=== PATIENT | male | born 1945 | race Caucasian/White ===

== ENCOUNTER → 2016-05-10 | Outpatient (CLI) | payer MEDICARE ==
[~2016-05-10] MED LIST: /AMIO20TA PO; /HYDR10TAB PO; /PANT40TA PO; ACET65TA; AMLO2.5T PO; APAP325T PO; ATOR1TAB21 PO; AVOD0.5C; CALC0.25 PO; CALC1CAP31 PO; CARV12.5 PO; CARV6.25 PO; COLA50CA3 PO; COUM1TAB17 PO; COZA50TA PO; LEVA250T; LEVO75TA4 PO; LOPR50TA; LOSA100T36 PO; NEPHROVITE; NORCOTAB PO; NORV5TAB; PANT40TA2 PO; PERC5TAB8; PHOSLO667 MG; RENATAB5 PO; RENATAB6 PO; SENO8.6T10 PO; SYNT100T PO; SYNT88TA2 PO; [UNRECOGNIZED DRUG - OTHER] PO
--- NOTE | 2016-05-11 10:18 | RADONC ---
RADIATION ONCOLOGY FOLLOWUP NOTE DATE: 05/11/2016 DIAGNOSIS: Prostate cancer. STAGE: II, [id number]. ECOG PERFORMANCE STATUS: 0 FOLLOWUP NOTE: Mr. 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 The patient presents today reporting that he is doing quite well with no complaints at this time related to his radiation therapy disease. He has no bowel difficulties and no bone pain. REVIEW OF SYSTEMS: The patient's review of systems is noncontributory except for his continued need for dialysis. He denies nausea, vomiting, fevers, chills, night sweats, diplopia, headaches, anxiety or depression, anorexia, weight loss, visual disturbances, chest pain, bowel difficulties, bone pain or neurological problems. PHYSICAL EXAMINATION The patient is a well-developed, well-nourished male in no acute distress. HEENT exam is normocephalic, atraumatic. Extraocular movements are intact. There is no palpable cervical, supraclavicular, infraclavicular, axillary, or inguinal lymphadenopathy present. Lungs are clear to auscultation and percussion. Heart has a regular rate and rhythm. Abdomen is benign with no hepatosplenomegaly, masses, or tenderness. Rectal examination reveals a normal anal sphincter tone. His prostate is smooth with no evidence of nodularity. Skeletal examination reveals no tenderness to pressure or percussion of the bony skeleton. Extremities reveal no clubbing, cyanosis, or edema. Neurologic exam is grossly intact as is the remainder of the physical examination. ASSESSMENT: The patient is clinically doing very well at this point. His PSA however has gone up very slightly to 2.1 on 05/03/2016 as compared to 1.9 on 10/26/2015. It has been slowly going up over the past few years. I discussed this patient's concerns in detail and provided him a copy of the NCCN guidelines for biochemical failure in a patient status post radiation. At this time, biochemical failure according to the NCCN guidelines is a rise by 2 points. His overall PSA has only risen by 1.5 points over the last 7 years. In light of this, we will continue to follow him closely. I have scheduled a followup in 4 months and will repeat the PSA at that time. The patient is having no quality of life issues at the present time. I explained the various procedures and workup that would be required to pursue local treatment following radiation and their risks. At this time he does not even think he would want to take such risks. Indeed, in light of his exceedingly high PSA at diagnosis of 97.29, the likelihood is that the tumor was outside the prostate area to begin with. I suspect it may have been in the lymph node, which was in the irradiated field. Cryosurgery or brachytherapy would not help such a situation. Once again, in summary, I have scheduled the patient to see me again in four months time. We will repeat the PSA level at that time. I have given him various educational sites were he can review his options should the PSA accelerate or continue to rise. At this time, I believe watchful waiting would be best in this patient with no symptoms. cc: Davi Segovia MD *Kaity Pearson,
== END ==
LOC: M ONCR 15:20
PROVIDERS: ATTEND Radiology Radiation Oncology
DX: C61 Malignant neoplasm of prostate (principal)

== ENCOUNTER → 2016-09-15 | Outpatient (CLI) | payer MEDICARE ==
[~2016-09-15] MED LIST changes: +ACETAMINOPHEN 325 MG TAB As Ordered ONE; +LIDOCAINE 1% MDV 20ML VIAL As Ordered ONE
--- NOTE | 2016-09-15 14:33 | REP ---
POST BIOPSY CHEST: A single view of the chest is performed status post right lung biopsy. There is no pneumothorax. Opacity is again seen in the right lung base. The heart is not significantly enlarged. There are multiple sternal wires. IMPRESSION: No pneumothorax, status post right lung biopsy. Signed by Adonis Raza MD 09/15/2016 03:58 P
--- NOTE | 2016-09-15 16:58 | REP ---
CT GUIDED RIGHT MIDDLE LOBE LUNG BIOPSY: The procedure was performed under the direct supervision of Dr. Raza. The patient has a history of a 1.8 cm mass in the right middle lobe seen on a previous CAT scan from [facility] performed on 08/23/2016. The risks and benefits of the procedure were explained to the patient and informed consent was obtained. The right middle lobe lung mass was localized using CT guidance. The skin was prepped and draped in a sterile fashion. 1% Lidocaine was used as a local anesthetic. Using CT guidance a 19/20-gauge coaxial needle biopsy system was inserted and then advanced into the mass. 4 core biopsy samples were obtained and sent to the lab. The patient tolerated the procedure well and there were no immediate complications. After the appropriate amount of monitored convalescence the patient was discharged from the department. Reviewed by MELISA Savage 09/18/2016 03:15 PEdited and Signed by Adonis Raza MD 09/18/2016 04:51 P
== END | disposition home or self-care (01) ==
LOC: M RADPRO 10:15
PROVIDERS: ATTEND Surgery
DX: C34.2 Malignant neoplasm of middle lobe, bronchus or lung (principal); C61 Malignant neoplasm of prostate; N18.6 End stage renal disease; I51.9 Heart disease, unspecified; Z95.5 Presence of coronary angioplasty implant and graft; Z99.2 Dependence on renal dialysis; Z79.01 Long term (current) use of anticoagulants; Z79.899 Other long term (current) drug therapy; Z87.891 Personal history of nicotine dependence

== ENCOUNTER → 2016-09-27 | Outpatient (CLI) | payer MEDICARE ==
[~2016-09-27] MED LIST changes: -ACETAMINOPHEN 325 MG TAB As Ordered ONE; -LIDOCAINE 1% MDV 20ML VIAL As Ordered ONE
--- NOTE | 2016-09-28 10:09 | RADONC ---
RADIATION ONCOLOGY FOLLOWUP NOTE DATE: 09/27/2016 CHART NUMBER: [id number] DIAGNOSIS: Prostate cancer. STAGE: II, W2iW7E0, now metastatic. ECOG performance status one. FOLLOWUP NOTE: Mr. Florez is a very pleasant 71-year-old white male who was originally diagnosed with a high-risk Stage 2, K4pG8V6 moderate to poorly differentiated Ashu score 7 (3-4) adenocarcinoma of the prostate and is now presenting to us 8 years post completion of external beam radiation therapy. The patient recently was being worked up for hernia surgery and was found to have a solitary mid right middle lobe lung nodule on his CT scan. On 09/15/2016, this was biopsied and pathology revealed metastatic prostate adenocarcinoma. His PSA done 09/22/2016 had risen to 3.62 from 2.1 on 05/03/2016. At this time, no other sites of disease are seen, but his workup is only beginning in progress. The patient has no symptoms and generally continues to feel well. He continues with his urinary dialysis. REVIEW OF SYSTEMS: The patient's review of systems is positive for his need for dialysis, but is otherwise noncontributory. Denies nausea, vomiting, fevers, chills, night sweats, diplopia, headaches, anxiety or depression, anorexia, weight loss, visual disturbances, chest pain, urinary or bowel difficulties, bone pain, or neurological problems. PHYSICAL EXAMINATION: The patient is a well-developed, well-nourished male in no acute distress. HEENT exam is normocephalic, atraumatic. Extraocular movements are intact. There is no palpable cervical, supraclavicular, infraclavicular, axillary, or inguinal lymphadenopathy present. Lungs are clear to auscultation and percussion. Heart has a regular rate and rhythm. Abdomen is benign with no hepatosplenomegaly, masses, or tenderness. Rectal examination reveals a normal anal sphincter tone. His prostate is smooth with no evidence of nodularity. Skeletal examination reveals no tenderness to pressure or percussion of the bony skeleton. Extremities reveal no clubbing, cyanosis, or edema. Neurologic exam is grossly intact, as is the remainder of the physical examination. ASSESSMENT: At the present time, the patient is now 8 years post prostate treatment with a pathologically confirmed metastatic site in his right middle lobe. I have scheduled the patient for discussion at our multidisciplinary tumor conference next Sunday. In addition, I am ordering further workup including a bone scan as well as possibly a PET scan. I await the recommendations of our tumor board and further recommendations will be made once we obtain his overall level of disease. At this point, I would think if this is the only site of disease after all these years it may be quite reasonable to resect this site and then initiate hormonal treatment. He would then need close monitoring. If further workup shows widely metastatic disease, clearly the recommendations may change. Once again, I have scheduled the patient for discussion at our multidisciplinary tumor conference and he will undergo reevaluation and consultation the following day. We are also scheduling a bone scan and a PET scan at this point. cc: DO Vince Clements MD Alejandro Rodriguez, MD MTDD
== END ==
LOC: M ONCR 14:35
PROVIDERS: ATTEND Radiology Radiation Oncology
DX: C61 Malignant neoplasm of prostate (principal)

== ENCOUNTER → 2016-10-03 | Outpatient (CLI) | payer MEDICARE ==
--- NOTE | 2016-10-05 08:31 | REP ---
Whole body PET CT scan: The study is correlated with the recent chest CT dated 08/23/2016 from [facility]. The the patient has a right middle lobe of lung mass. This mass was biopsied under CT guidance on 09/15/2016. The pathology report indicates that the biopsy specimen demonstrated findings of metastatic adenocarcinoma consistent with prostate primary. The comparison CT also demonstrated a 7 mm nodule in the lower lobe of the right lung. Whole body PET CT scan is performed from skull base to the upper thighs. Neck and supraclavicular areas: There are no hypermetabolic foci. Chest: The right middle lobe lung mass demonstrates hypermetabolic uptake with a standard uptake value 4.91, compatible with neoplasm. The right lower lobe lung nodule demonstrates no radiotracer uptake and has a standard uptake value 0.7. There are no other hypermetabolic foci in the chest. Abdomen, pelvis and upper thighs: There is focal uptake at the lateral aspect of the left rectus abdominus muscle with the standard uptake value of 4.7. This is at the skin entrance site of a peritoneal catheter. . Therefore, the significance of this uptake is nonspecific and could be secondary to catheter placement or could represent metastasis. There is nonspecific bowel uptake. There are no other hypermetabolic foci in the abdomen, pelvis or upper thighs. No skeletal foci are identified. Impression: The patient's known right middle lung nodule demonstrates hypermetabolic uptake. The patient's known right lower lobe lung nodule demonstrates no radiotracer uptake. There is focal hypermetabolic uptake at the lateral aspect of the left rectus abdominus muscle in the location of the percutaneous peritoneal catheter skin entrance site. Therefore, this is nonspecific and could be secondary catheter placement or could be a metastasis. There are no other hypermetabolic foci. Signed by Adonis Denton MD 10/05/2016 08:22 A
== END ==
LOC: M PLARAD 11:26
PROVIDERS: ATTEND Radiology Radiation Oncology
DX: C61 Malignant neoplasm of prostate (principal); C78.01 Secondary malignant neoplasm of right lung
CPT/HCPCS: 78815; A9552

== ENCOUNTER → 2016-10-05 | Outpatient (CLI) | payer MEDICARE ==
--- NOTE | 2016-10-05 13:42 | REP ---
REASON: History of prostate carcinoma. COMPARISON: 05/12/2008. After the intravenous administration of 22.0 mCi of technetium 99m MDP, total body bone scan was obtained. Degenerative type uptake pattern is again seen in the shoulders, elbows, wrists, hips, and knees. Degenerative type uptake pattern is also seen in the cervical spine. IMPRESSION: Degenerative type uptake patterns as described above. There is no compelling evidence of metastatic disease. Signed by Raz Robb DO 10/05/2016 02:18 P
== END ==
LOC: M RAD 10:48
PROVIDERS: ATTEND Radiology Radiation Oncology
DX: C61 Malignant neoplasm of prostate (principal)
CPT/HCPCS: 78306; A9503

== ENCOUNTER → 2016-10-05 | Outpatient (CLI) | payer MEDICARE ==
--- NOTE | 2016-10-06 06:37 | RADONC ---
RADIATION ONCOLOGY PROGRESS NOTE DATE: 10/05/2016 CHART NUMBER: [id number] Mr. Florez underwent his PET scan as well as is bone scan. I do not have the official reading of the bone scan, but his PET scan showed some hypermetabolic uptake in his right middle lobe mass. The patient was presented at our multidisciplinary tumor conference. At that conference it was recommended that he be initially treated with androgen deprivation therapy. In the meantime, his symptomatic hernia can also be surgically corrected. Indeed, his prostate tumor will be treated with androgen deprivation therapy while he is recovering from his hernia surgery. Since the only known site of metastatic disease appears to be that lung nodule, it was also has deemed reasonable to have that resected with Dr. Guo following recovery from the hernia surgery. Monitoring of his smaller non hypermetabolic nodule was also recommended to continue in the meantime. I have set the patient up to see me again in 6 months for further followup. In the meantime, the patient is scheduled see Dr. Colby next week for initiation of his hormonal treatment. cc: MD Vince Mckeon MD
== END ==
LOC: M ONCR 13:21
PROVIDERS: ATTEND Radiology Radiation Oncology
DX: C61 Malignant neoplasm of prostate (principal)

== ENCOUNTER → 2016-10-10 | Outpatient (REF) | payer MEDICARE | LOC: M LAB REF 16:52 | PROVIDERS: ATTEND Internal Medicine Medical Oncology | DX: C61 Malignant neoplasm of prostate (principal) ==

== ENCOUNTER 2016-11-03 06:01 | Day surgery (SDC) | payer MEDICARE ==
[~2016-11-03] VITALS: Ht 167.6 cm; Wt 120.5 kg
[~2016-11-03 06:01] MED LIST changes: +ARTH650T11 PO; +COUM2TAB22 PO; +LOSA50TA20 PO; +MUPI1POW TOP
[2016-11-03] MEDS ORDERED: LIDOCAINE 1% SDV 5 ML VIAL XX ONE (06:15)
[2016-11-03] MEDS ORDERED: LR 1,000 ML IV SCH (06:15)
[2016-11-03 06:41] LABS: INR 1.02
[2016-11-03] MEDS ORDERED: BUPIVACAINE/EPIN 0.25% 30 ML VIAL As Ordered ONE (07:19)
[2016-11-03] MEDS ORDERED: NEOSTIGMINE 1MG/ML 5 ML SYRINGE (J2710) As Ordered ONE (08:02)
[2016-11-03] MEDS ORDERED: GLYCOPYRROLATE INJ 0.2 MG/ML 2 ML VIAL As Ordered ONE (08:02)
[2016-11-03] MEDS ORDERED: MIDAZOLAM INJ 2 MG/2 ML VIAL (J2250) As Ordered ONE (08:02)
[2016-11-03] MEDS ORDERED: dexameTHASONE 4 MG/ML 1ML VIAL (J1100) As Ordered ONE (08:02)
[2016-11-03] MEDS ORDERED: fentaNYL 100 MCG/2 ML INJECTION (J3010) As Ordered ONE ×2 (08:02→10:17)
[2016-11-03] MEDS ORDERED: ONDANSETRON 4MG/2ML VIAL (J2405) As Ordered ONE (08:02)
[2016-11-03] MEDS ORDERED: ROCURONIUM BROMIDE 50 MG/5 ML VIAL/SYRINGE As Ordered ONE (08:02)
[2016-11-03] MEDS ORDERED: PROPOFOL 500 MG/50 ML VIAL As Ordered ONE (08:02)
[2016-11-03] MEDS ORDERED: LIDOCAINE 2% INJ 100 MG/5 ML SDV (FOR ANES.) As Ordered ONE (08:11)
[2016-11-03] MEDS ORDERED: ePHEDrine SULFATE 25 MG/5 ML(5MG/ML) SYRINGE As Ordered ONE (08:11)
[2016-11-03] MEDS ORDERED: PHENYLephrine HCL 500 MCG/5 ML (100MCG/ML) SYRINGE (J2370) As Ordered ONE (08:11)
[2016-11-03] MEDS ORDERED: HYDROmorphone HCL 2 MG/ML 1ML VIAL (J1170) As Ordered ONE (09:08)
[2016-11-03] MEDS ORDERED: METOCLOPRAMIDE INJ 10MG/2ML VIAL (J2765) As Ordered ONE (09:13)
[2016-11-03] MEDS: fentaNYL 100 MCG/2 ML INJECTION (J3010) IV PRN ×6 (10:20→18:55)
[2016-11-03] MEDS ORDERED: ONDANSETRON 4MG/2ML VIAL (J2405) IV PRN ×2 (10:30→15:15)
[2016-11-03] MEDS ORDERED: CARVedilol 12.5 MG TAB PO ONE (10:30)
[2016-11-03] MEDS ORDERED: NORCO, ANEXSIA 5/325MG TABLET (HYDROcodone/ACETAMINOPHEN) PO PRN (10:30)
[2016-11-03] MEDS ORDERED: NS 1,000 ML IV SCH (10:30)
[2016-11-03] MEDS ORDERED: CARVedilol 6.25 MG TAB As Ordered ONE (10:43)
[2016-11-03] MEDS ORDERED: LABETALOL HCL 100 MG/20 ML VIAL As Ordered ONE (10:57)
[2016-11-03] MEDS: LABETALOL HCL 100 MG/20 ML VIAL IV SCH ×5 (11:04→11:40)
[2016-11-03] MEDS ORDERED: ACETAMINOPHEN TAB 650MG DOSE (2X325MG) PO PRN (15:15)
[2016-11-03] MEDS ORDERED: MORPHINE 2 MG/ML 1ML SYRINGE IV PRN (15:15)
[2016-11-03] MEDS ORDERED: KETOROLAC 30 MG/ML VIAL (J1885) IV PRN (16:00)
[2016-11-03] MEDS ORDERED: NORCO, ANEXSIA 5/325MG TABLET (HYDROcodone/ACETAMINOPHEN) PO ONE (16:15)
[2016-11-03] MEDS ORDERED: hydrALAZINE INJ 20 MG/ML VIAL As Ordered ONE (17:22)
[2016-11-03] MEDS: hydrALAZINE INJ 20 MG/ML VIAL IV PRN ×3 (17:35→18:15)
[2016-11-03] MEDS ORDERED: LABETALOL HCL 100 MG/20 ML VIAL IV PRN (18:45)
[2016-11-03 20:15] VITALS: BP 188/102
[2016-11-03 20:45] VITALS: BP 130/71
[2016-11-03] MEDS ORDERED: ATORVASTATIN 20 MG TAB PO SCH (21:00)
[2016-11-03] MEDS: SENOKOT S TAB PO SCH (21:00)
[2016-11-03] MEDS: HEPARIN SOD (PORCINE) 5000 UNITS/ML VIAL SC SCH (21:39)
[2016-11-03] MEDS: CARVedilol 12.5 MG TAB PO SCH (21:40)
[2016-11-03 21:45] VITALS: BP 156/72
--- NOTE | 2016-11-03 22:30 | ECGEPIP ---
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 Electronically Signed On 11-03-2016 22:30:30 EDT by James Logan
[2016-11-03 22:45] VITALS: BP 148/70
[2016-11-04 02:00] VITALS: BP 176/84
[2016-11-04 03:30] VITALS: BP 148/78
[2016-11-04 06:00] VITALS: BP 148/72
[2016-11-04] MEDS ORDERED: LEVOTHYROXINE 75MCG TABLET (0.075MG) PO SCH (06:00)
[2016-11-04] MEDS: HEPARIN SOD (PORCINE) 5000 UNITS/ML VIAL SC SCH (06:33)
[2016-11-04] MEDS ORDERED: MIDAZOLAM INJ 2 MG/2 ML VIAL (J2250) As Ordered ONE (07:35)
[2016-11-04] MEDS ORDERED: fentaNYL 100 MCG/2 ML INJECTION (J3010) As Ordered ONE (07:35)
[2016-11-04] MEDS ORDERED: PROPOFOL 200 MG/20 ML VIAL As Ordered ONE (07:37)
[2016-11-04] MEDS ORDERED: LIDOCAINE 2% INJ 100 MG/5 ML SDV (FOR ANES.) As Ordered ONE (07:37)
[2016-11-04] MEDS: CARVedilol 12.5 MG TAB PO SCH (08:00)
[2016-11-04] MEDS ORDERED: BUPIVACAINE HCL 0.5% 30 ML VIAL As Ordered ONE (08:40)
[2016-11-04] MEDS ORDERED: LIDOCAINE 1% SDV INJ 30 ML VIAL As Ordered ONE (08:40)
[2016-11-04 09:00] VITALS: BP 131/64
[2016-11-04] MEDS ORDERED: PANTOPRAZOLE 40MG INJ (PROTONIX) (C9113) IV SCH (09:00)
[2016-11-04] MEDS ORDERED: LOSARTAN 50 MG TAB PO SCH (09:00)
[2016-11-04] MEDS: SENOKOT S TAB PO SCH (09:00)
[2016-11-04] MEDS ORDERED: HEPARIN SOD (PORCINE) 5000 UNITS/ML VIAL As Ordered ONE (09:06)
--- NOTE | 2016-11-04 09:39 | ROOPDOC ---
[facility] Report Of Operation Report of Operation DATE OF PROCEDURE: 11/04/16 PREOPERATIVE DIAGNOSES:Renal failure requiring hemodialysis. POSTOPERATIVE DIAGNOSES: Renal failure requiring hemodialysis. PROCEDURE: Right internal jugular vein ultrasound and fluoroscopic guided 19 cm tip to cuff central venous tunneled catheter insertion. SURGEON: Dr. Gil Anaya MD WOOL CARDER: None INDICATION:Patient is a 71-year-old male who has renal failure who normally dialyzes through a peritoneal dialysis catheter. Patient underwent repair of an incisional hernia laparoscopically, and is unable to use his renal dialysis catheter at this time.. Patient will undergo placement of a right internal jugular vein PermCath. Risks, benefits and alternative treatment options were discussed with the patient. Alternative treatment options included no intervention with continued conservative management. Risks included but were not limited to infection, bleeding, renal failure requiring hemodialysis, possible need for further open surgical intervention, cerebrovascular accident, myocardial infarction, pulmonary and was, DVT, loss of limb, loss of life, prolonged hospitalization and poor outcome. Patient's questions were answered, and patient agrees to proceed with a right internal jugular vein PermCath insertion ANESTHESIA: Local monitored anesthesia care. SEDATION TIME: None FLUORO TIME: 30 seconds CONTRAST: None IVF: 200 ESTIMATED BLOOD LOSS:Approximately 5 mL. HEPARIN: None PROTAMINE: None COMPLICATIONS: None DRAINS: None SPECIMENS: None IMPLANTS: 19 cm tip to cuff EvenMore PermCath in the right internal jugular vein FINDINGS: Normal anatomy DESCRIPTION OF PROCEDURE: Patient was taken to the operating room, placed supine on the operating room table, and after performing a surgical timeout confirming the correct patient and procedure, the patient was prepped and draped in a standard surgical fashion. Ultrasound is used to evaluate the right internal jugular vein which was noted to be widely patent easily compressible and free of thrombus. The also was used to guide cannulation of the right internal jugular vein with an micro-puncture needle. The micro-puncture was advanced through the micropuncture needle which subsides to micropuncture sheath. An Amplatz wire was advanced through the micropuncture sheath. A 19 cm tip to cuff catheter was tunneled through a puncture wound in the right chest area and brought out through a puncture wound at the right internal jugular vein entry site after anesthetizing the overlying skin with 1% lidocaine mixed with half percent Marcaine. The right internal jugular vein was then sequentially dilated under fluoroscopic guidance, an introducer sheath was placed, and then the catheter was advanced through the introducer sheath which was peeled away and removed. Catheter was positioned with the tip in the superior vena cava right atrial junction. Both ports were aspirated noted to aspirate easily and then flushed with heparinized saline. Catheter was secured to the anterior chest wall using 2-0 Prolene suture after anesthetizing the overlying skin with 1% lidocaine mixed with half percent Marcaine. The puncture wound in the right neck was closed using 4-0 Monocryl suture in inverted interrupted fashion. Dressings were applied, patient tolerated the procedure well. All instrument, sponge and needle counts were correct at the end of the case. There were no complications, and Dr. Anaya was present for and directed the entire case. Patient was transferred to the recovery room awake, alert, extubated and in stable condition. RADIOLOGIC SUPERVISION AND INTERPRETATION: The initial ultrasound of the right internal jugular vein showed leading to be widely patent easily compressible and free of thrombus. Ultrasound was used to guide cannulation of the right internal jugular vein with a hardcopy image preserved. The right internal jugular vein was sequentially dilated under fluoroscopic guidance. Catheter was positioned with the tip in the superior vena cava right atrial junction. Final fluoroscopic image showed the catheter to be in good position and good alignment with no pneumo or hemothorax noted. Catheter is stable for use for hemodialysis access. Rashad Anaya MD Nov 04, 2016 09:39
[2016-11-04] MEDS ORDERED: fentaNYL 100 MCG/2 ML INJECTION (J3010) IV PRN (09:45)
[2016-11-04 10:00] VITALS: BP 136/65
[2016-11-04 10:30] VITALS: BP 155/73
--- NOTE | 2016-11-04 11:28 | IPNPDOC ---
Subjective General Date/Time Seen The patient was seen on 11/04/16 at 11:26. Subject Chief Complaint/History The patient is a 71-year-old male admitted with a reason for visit of Incarcerated Incisional Hernia. A HD permacath was placed today by Dr. Simmons. Patient reports he is comfortable. Nausea better. Current Medications Current Medications Current Medications Acetaminophen (Tylenol Tab) 650 mg Q4HP PRN PO MILD PAIN or TEMP > 101; Start 11/03/16 at 15:15; Stop 12/03/16 at 15:14 Acetaminophen/ Hydrocodone Bitart ([place], Anexsia 5/325) 2 tab Q6HP PRN PO PAIN Last administered on 11/03/16 14:37; Start 11/03/16 at 10:30; Stop at 10:29 Atorvastatin Calcium (Lipitor) 20 mg QPM PO ; Start 11/03/16 at 21:00; Stop at 20:59 Carvedilol (COReg) 12.5 mg BID@08,20 PO Last administered on 11/03/16 21:40; Start 11/03/16 at 20:00; Stop 12/03/16 at 19:59 Fentanyl Citrate (Sublimaze) 25 mcg Q5MP PRN IV MODERATE PAIN (PS 4-7) Last administered on 11/03/16 10:30; Start 11/03/16 at 10:30; Stop 11/03/16 at 11:30 ; Status DC Fentanyl Citrate (Sublimaze) 25 mcg Q5MP PRN IV MODERATE PAIN (PS 4-7) Last administered on 11/03/16 18:55; Start 11/03/16 at 18:00; Stop 11/03/16 at 19:00 ; Status DC Fentanyl Citrate (Sublimaze) 25 mcg Q5MP PRN IV MODERATE PAIN (PS 4-7); Start 11/04/16 at 09:45; Stop 11/04/16 at 10:45; Status DC Heparin Sodium (Porcine) (Heparin) 5,000 units Q8H SC Last administered on 11/04 06:33; Start 11/03/16 at 22:00; Stop 11/08/16 at 21:59 Hydralazine HCl (Apresoline) 5 mg Q5M PRN IV TITRATE FOR SBP <190 Last administered on 11/03/16 18:15; Start 11/03/16 at 17:30; Stop 11/03/16 at 19:00 ; Status DC Ketorolac Tromethamine (ToRADol) 15 mg Q6HP PRN IV MILD/MODERATE PAIN (PS 1-7) Last administered on 11/04/16 03:15; Start 11/03/16 at 16:00; Stop 11/08/16 at 15:59 Labetalol HCl (Normodyne, Trandate) 5 mg ASDIRECTED IV Last administered on 11:40; Start 11/03/16 at 11:15; Stop 11/03/16 at 12:00; Status DC Labetalol HCl (Normodyne, Trandate) 5 mg Q5M PRN IV TITRATE SBP <190; Start at 18:45; Stop 11/03/16 at 19:00; Status DC Lactated Ringer's 1,000 ml @ 100 mls/hr Q10H IV ; Start 11/03/16 at 06:15; Stop 11/03/16 at 10:28; Status DC Levothyroxine Sodium (Synthroid) 75 mcg DAILY@06 PO Last administered on 06:33; Start 11/04/16 at 06:00; Stop 12/04/16 at 05:59 Losartan Potassium (Cozaar) 50 mg DAILY PO ; Start 11/04/16 at 09:00; Stop 12/04 at 08:59 Morphine Sulfate (Morphine Sulfate Inj) 2 mg Q2HP PRN IV SEVERE PAIN (PS 8-10) ; Start 11/03/16 at 15:15; Stop 11/10/16 at 15:14 Ondansetron HCl (ZOFRAN INJection) 4 mg Q4HP PRN IV NAUSEA OR VOMITING; Start 11/03/16 at 10:30; Stop 11/03/16 at 11:30; Status DC Ondansetron HCl (ZOFRAN INJection) 4 mg Q6HP PRN IV NAUSEA OR VOMITING Last administered on 11/04/16 03:13; Start 11/03/16 at 15:15; Stop 12/03/16 at 15:14 Pantoprazole Sodium (Protonix) 40 mg DAILY IV Last administered on 7/22/17at 10 :14; Start 11/04/16 at 09:00; Stop 12/04/16 at 08:59 Senna/Docusate Sodium (Senokot S) 1 tab BID PO ; Start 11/03/16 at 21:00; Stop 12/03/16 at 20:59 Sodium Chloride 1,000 ml @ 30 mls/hr Q24H IV ; Start 11/03/16 at 10:30; Stop at 11:30; Status DC Allergies Coded Allergies: No Known Drug Allergy (Verified Allergy, Unknown, 11/03/16) Objective Physical Examination Examination GENERAL APPEARANCE:Patient seen, laying in bed, awake, alert, and oriented. Comfortable, in no acute distress. SKIN: Warm and moist. HEENT: Normocephalic, atraumatic. [place] palpebral conjunctiva, anicteric sclerae. Lips and mucosa appear moist. NECK: Supple, no thyromegaly. No obvious jugular venous distention. LUNGS: Clear to auscultation bilaterally. No wheezing appreciated.New Permacath , right side of chest HEART: No chest wall abnormalities. Regular rate and rhythm with no murmurs appreciated. ABDOMEN: Abdomen is round, soft, mildly distended. Dressings clean, dry, intact. PD catheter site clean. Minimally tender to palpatiion. EXTREMITIES: Extremities have no deformities. No edema identified. Vital Signs Vital Signs Date Time Temp Pulse Resp B/P (MAP) Pulse Ox O2 Delivery O2 Flow Rate FiO2 11/04/16 10:30 98.8 65 18 155/73 (100) 97 Room Air 11/03/16 20:05 2.0 I&Os I&O- Last 24 Hours up to 6 AM 11/04/16 06:00 Intake Total 1420 ml Output Total 1050 ml Balance 370 ml Impression POD1 incisional hernia repair permacath placement Stable. OK to go home. Hemodialysis planned for sunday as outpt. follow up with Dr. Thakkar as scheduled light activity Plan / VTE VTE Prophylaxis Ordered?: Yes YUVAL GUEVARA MD Nov 04, 2016 11:28
--- NOTE | 2016-11-04 14:56 | REP ---
C-ARM VIEWS OF THE CHEST: Two C-arm views of the chest are performed. Central venous dialysis catheter is seen with the tip in the right atrium. 31 seconds fluoroscopy time utilized. Signed by Adonis Raza MD 11/04/2016 03:24 P
--- NOTE | 2016-11-05 06:38 | RO ---
DATE OF PROCEDURE: 11/03/2016 PREOPERATIVE DIAGNOSIS: Incarcerated incisional hernia. POSTOPERATIVE DIAGNOSIS: Incarcerated incisional hernia. PROCEDURE: Laparoscopic incarcerated incisional hernia repair with mesh. SURGEON: Dr. Adonis Thakkar INSTRUMENTATION AND CONTROLS TECHNICIAN: Dr. Goodman ANESTHESIA: General. ESTIMATED BLOOD LOSS: 10. COMPLICATIONS: None. INDICATION FOR PROCEDURE: The patient is a 71-year-old male with peritoneal dialysis who has a large incarcerated incisional hernia. Recommendation is to proceed with laparoscopic possible open repair. Risks and benefits of procedure not limited to, but including bleeding, infection, hernia recurrence, damage to surrounding structures, seroma formation, and need for further surgery were discussed in detail with the patient. Informed consent was obtained and the procedure was planned. PROCEDURE: The patient brought back to operating room six after sufficient sedation and the abdomen was sterilely prepped and draped. Next, a time-out was done to confirm proper patient and proper procedure. Following that, a 5 mm incision made in the left lower quadrant. The Veress needle was inserted and the abdomen was insufflated to 15 mm of mercury. Next, a 5 mm OptiView port was used to gain access to the abdomen. Once abdomen was entered, there was a very large midline hernia identified. The hernia contents were all reduced. A few adhesions were taken down using the Enseal. Due to the size of the defect and it was less than 2 cm away from the peritoneal dialysis catheter entrance into the abdomen, because of that the plan was to open and primarily close the defect from the outside. Next, a 10 mm midline incision was created over the top of the center of the defect. The hernia sac was carefully dissected free circumferentially all way down to the level of the fascia. It was then excised. The fascia edges were freed up in all directions. From the inside, we were able to place two interrupted #0 Vicryl sutures to close a small defect around the entrance of the peritoneal dialysis catheter into the abdomen. Once that was completed, a 10 x 15 cm Parietex composite mesh had #0 Vicryl sutures placed on all four sides. The mesh and sutures were then all placed inside of the abdomen. The defect was then closed with an #0 PDS suture, one from the top and one from the bottom and tied in the center. The abdomen was then reinsufflated. The transfascial sutures were brought out through the abdominal wall through a stab incision and using a Jacinto-Pham needle and then tied in place. The mesh was then tacked in place using SecureStrap tacks all around the perimeter of the mesh and then along both sides of the dialysis catheter to hold that in place. Once all this was completed, the abdomen was desufflated. The skin incisions were closed with #4-0 Vicryl subcuticular sutures. The skin overlying the midline hernia sac was carefully excised for about 2 inches circumferentially. The subcutaneous tissues were then reapproximated using #3-0 Vicryl subcuticular sutures and a running #4-0 Vicryl subcuticular suture to approximate the skin edges. The abdomen was then cleaned and dried. Steri-Strips, 4x4 and tape were applied thus ending procedure.
== END 2016-11-04 12:08 | disposition home or self-care (01) ==
LOC: M SDC 06:01 → M MS5PR 19:10 → M SDC 11-04 12:08
PROVIDERS: ATTEND Surgery
DX: K43.0 Incisional hernia with obstruction, without gangrene (principal); I25.10 Atherosclerotic heart disease of native coronary artery without angina pectoris; I12.0 Hypertensive chronic kidney disease with stage 5 chronic kidney disease or end stage renal disease; E78.5 Hyperlipidemia, unspecified; D64.9 Anemia, unspecified; M54.9 Dorsalgia, unspecified; C61 Malignant neoplasm of prostate; M12.9 Arthropathy, unspecified; E03.9 Hypothyroidism, unspecified; I48.91 Unspecified atrial fibrillation; I25.2 Old myocardial infarction; N18.6 End stage renal disease; K21.9 Gastro-esophageal reflux disease without esophagitis; E78.00 Pure hypercholesterolemia, unspecified; C44.91 Basal cell carcinoma of skin, unspecified; C78.00 Secondary malignant neoplasm of unspecified lung; Z79.899 Other long term (current) drug therapy; Z79.01 Long term (current) use of anticoagulants; Z87.891 Personal history of nicotine dependence; Z92.3 Personal history of irradiation; Z99.2 Dependence on renal dialysis; Z95.5 Presence of coronary angioplasty implant and graft
CPT/HCPCS: 36415; 49655; 84132; 85610; 88302; 93005; 96372; 96374; 96375; 96376; C1750; C1769; C1781; C9113; J0690; J1100; J1170; J1885; J2250; J2370; J2405; J2710; J2765; J3010

== ENCOUNTER → 2017-01-09 | Outpatient (CLI) | payer MEDICARE ==
[~2017-01-09] MED LIST changes: +ISOVUE-370 76% 100ML VIAL (Q9967) As Ordered ONE
--- NOTE | 2017-01-09 14:31 | REP ---
CT of the chest with IV contrast: Comparison is 08/23/2016 ([facility]). On the previous study there was a 128 cm right upper lobe lung nodule. On the study today the nodule is again identified and has a ground-glass appearance as opposed to the solid appears previously. The nodule today measures 1.6 cm. No other lung nodules or masses are identified. No acute infiltrates or effusions. There is no mediastinal or hilar adenopathy. The. There is no axillary adenopathy. There are no lytic, blastic or destructive skeletal changes. There are sternotomy wires as previously. The thoracic aorta is unremarkable. Cardiac size is normal. There is no pericardial effusion. With the visualized upper abdomen. There are tiny gallbladder calculi. These are unchanged. The upper poles of the kidneys appear somewhat atrophic, particularly on the right. The adrenals are unremarkable. Visualized portions of the liver, pancreas and spleen are unremarkable. Impression: The patient's known right upper lobe lung nodule has decreased in size and now has a ground-glass appearance. There are no other lung nodules or masses. No acute infiltrates or effusions. No adenopathy. There is no evidence of skeletal metastatic disease. There are sternotomy wires. There is cholelithiasis, unchanged. There is renal cortical atrophy of the visualized renal upper poles bilaterally, particularly on the right. This appears unchanged. Signed by Adonis Denton MD 01/09/2017 02:23 P
== END ==
LOC: M RAD 13:30
PROVIDERS: ATTEND Internal Medicine Medical Oncology
DX: C61 Malignant neoplasm of prostate (principal); C79.9 Secondary malignant neoplasm of unspecified site; K80.20 Calculus of gallbladder without cholecystitis without obstruction
CPT/HCPCS: 71260; Q9967

== ENCOUNTER → 2017-01-11 | Outpatient (CLI) | payer MEDICARE ==
[~2017-01-11] MED LIST changes: -ISOVUE-370 76% 100ML VIAL (Q9967) As Ordered ONE; +LIDOCAINE 2% MDV 20 ML VIAL As Ordered ONE
--- NOTE | 2017-01-24 14:42 | REPKIM ---
DATE OF PROCEDURE: 01/11/2017 ATTENDING SURGEON: Dr. Caroline Anaya FIRE PATROLLER: Baylee Qureshi PREOPERATIVE DIAGNOSES: End-stage renal disease, functioning peritoneal dialysis catheter. POSTOPERATIVE DIAGNOSES: End-stage renal disease, functioning peritoneal dialysis catheter. PROCEDURE: Removal of right internal jugular PermCath. INDICATION: Patient is a 71-year-old male with renal failure who now has a functioning peritoneal dialysis catheter and no longer requires his right internal jugular vein PermCath. Patient will undergo removal of the right internal jugular vein PermCath. Risks, benefits, and alternative treatment options were discussed with the patient. ANESTHESIA: None. ESTIMATED BLOOD LOSS: Minimal. INTRAVENOUS (IV) FLUID: None. COMPLICATIONS: None. DRAINS: None. SPECIMENS: None. IMPLANTS: None. PROCEDURE: Patient was taken to the angiography suite, placed supine on the angiography room table, and then prepped and draped in a standard surgical fashion. The PermCath sutures were removed, and manual traction was applied, which spontaneously released the subcutaneous cuff, and the PermCath was removed, and manual compression applied. Dressings were then applied. Patient tolerated the procedure well. All instruments, sponge, and needle counts were correct at the end of the case. There were no complications. Dr. Anaya was present for and directed the entire case. Patient was transferred to the holding area and subsequently discharged in stable condition.
== END | disposition home or self-care (01) ==
LOC: M IRPRO 10:20
PROVIDERS: ATTEND Internal Medicine Nephrology
DX: Z45.2 Encounter for adjustment and management of vascular access device (principal); N18.6 End stage renal disease

== ENCOUNTER → 2017-02-06 | Outpatient (CLI) | payer MEDICARE ==
[~2017-02-06] MED LIST changes: -LIDOCAINE 2% MDV 20 ML VIAL As Ordered ONE
--- NOTE | 2017-02-07 11:10 | REP ---
Whole body PET CT scan for prostate carcinoma: Comparison is 10/03/2016. Whole-body scanning is performed from skull base to the upper thighs. Neck and supraclavicular areas: There are no hypermetabolic foci. There is artifactual uptake in lymphoid tissues. Chest: There is focal uptake in the distal right infraspinatus muscle tendon, not present previously with a standard uptake value of 5.3. Previously there was uptake in a left lung nodule. This uptake is no longer present. There are no other hypermetabolic foci in the chest. Abdomen, pelvis and upper thighs: Previously there was uptake at the skin entrance site of a peritoneal catheter. This uptake is no longer present. There is new uptake at the musculotendinous junctions of the gluteus heriberto muscles bilaterally with a maximal standard uptake value on the right of 5.4 and on the left of 3.1. In addition, there is new focal uptake in the greater trochanter of the right hip with a maximal standard uptake value of 4.3. Impression: There is focal uptake in the right infraspinatus muscle tendon and in the musculotendinous junctions of the gluteus muscles bilaterally. There is uptake in the greater trochanter of the right hip. The previous uptake in a left lung nodule is no longer present on the previous uptake in the the abdominal wall related to a peritoneal catheter is no longer present. The studies performed with 10 mCi of F 18 FDG. Signed by Adonis Denton MD 02/07/2017 11:02 A
== END ==
LOC: M PLARAD 14:27
PROVIDERS: ATTEND Internal Medicine Medical Oncology
DX: C61 Malignant neoplasm of prostate (principal); R93.7 Abnormal findings on diagnostic imaging of other parts of musculoskeletal system
CPT/HCPCS: 78815; A9552

== ENCOUNTER → 2017-02-22 | Outpatient (REF) | payer MEDICARE | LOC: M LAB REF 16:55 | PROVIDERS: ATTEND Internal Medicine Medical Oncology | DX: C61 Malignant neoplasm of prostate (principal) ==

== ENCOUNTER → 2017-03-22 | Outpatient (REF) | payer MEDICARE ==
[2017-03-22 19:08] LABS: ALBUMIN 3.4 GM/DL (3.2-5.2); ALBUMIN/GLOBULIN RATIO 1.03 (1.00-1.93); BILIRUBIN,TOTAL 0.8 MG/DL (0.2-1.0); CALCIUM LEVEL 8.8 MG/DL (8.8-10.2); CREATININE FOR GFR 3.47 MG/DL (0.70-1.30); GLOMERULAR FILTRATION RATE 18.7 (>42); POTASSIUM SERUM 4.3 MEQ/L (3.5-5.1); TOTAL PROTEIN 6.7 GM/DL (6.4-8.2)
== END ==
LOC: M LAB REF 17:18
PROVIDERS: ATTEND Nurse Practitioner Family
DX: C61 Malignant neoplasm of prostate (principal)

== ENCOUNTER → 2017-05-30 | Outpatient (CLI) | payer MEDICARE | LOC: M ONCR 15:03 | DX: C61 Malignant neoplasm of prostate (principal) | CPT/HCPCS: G0463 ==

== ENCOUNTER → 2017-06-28 | Outpatient (REF) | payer MEDICARE ==
[2017-06-28 18:01] LABS: ALBUMIN 3.2 GM/DL (3.2-5.2); ALKALINE PHOSPHATASE 103 U/L (45-117); ALT/SGPT 24 U/L (12-78); ANION GAP 9 MEQ/L (8-16); AST/SGOT 27 U/L (7-37); BILIRUBIN,TOTAL 0.9 MG/DL (0.2-1.0); BLOOD UREA NITROGEN 26 MG/DL (7-18); CALCIUM LEVEL 8.7 MG/DL (8.8-10.2); CARBON DIOXIDE LEVEL 26 MEQ/L (21-32); CHLORIDE LEVEL 105 MEQ/L (98-107); CREATININE FOR GFR 3.73 MG/DL (0.70-1.30); GLOMERULAR FILTRATION RATE 17.2 (>42); GLUCOSE, FASTING 98 MG/DL (70-100); POTASSIUM SERUM 4.2 MEQ/L (3.5-5.1); PROSTATIC SPECIFIC AG MONITOR 0.02 NG/ML (< 4.0); SODIUM LEVEL 140 MEQ/L (136-145); TOTAL PROTEIN 6.4 GM/DL (6.4-8.2)
[2017-06-28 18:27] LABS: TESTOSTERONE 15 NG/DL (241-827)
== END ==
LOC: M LAB REF 16:54
DX: C61 Malignant neoplasm of prostate (principal); Z79.899 Other long term (current) drug therapy; Z79.01 Long term (current) use of anticoagulants
CPT/HCPCS: 84403

== ENCOUNTER → 2017-09-05 | Outpatient (CLI) | payer MEDICARE | LOC: M ONCR 14:19 | DX: C61 Malignant neoplasm of prostate (principal) | CPT/HCPCS: G0463 ==

== ENCOUNTER → 2017-09-24 | Outpatient (REF) | payer MEDICARE, BC ==
[2017-09-24 18:57] LABS: PROSTATIC SPECIFIC AG MONITOR 0.01 NG/ML (< 4.0)
== END ==
LOC: M LAB REF 18:28
DX: C61 Malignant neoplasm of prostate (principal)
CPT/HCPCS: 84153

== ENCOUNTER → 2017-12-31 | Outpatient (CLI) | payer MEDICARE ==
[~2017-12-31] MED LIST changes: -/AMIO20TA PO; -/HYDR10TAB PO; -/PANT40TA PO; -ACET65TA; -AMLO2.5T PO; -APAP325T PO; -ARTH650T11 PO; -ATOR1TAB21 PO; -AVOD0.5C; -CALC0.25 PO; -CALC1CAP31 PO; -CARV12.5 PO; -CARV6.25 PO; -COLA50CA3 PO; -COUM1TAB17 PO; -COUM2TAB22 PO; -COZA50TA PO; +ISOVUE-370 76% 100ML VIAL (Q9967) As Ordered; -LEVA250T; -LEVO75TA4 PO; -LOPR50TA; -LOSA100T36 PO; -LOSA50TA20 PO; -MUPI1POW TOP; -NEPHROVITE; -NORCOTAB PO; -NORV5TAB; -PANT40TA2 PO; -PERC5TAB8; -PHOSLO667 MG; -RENATAB5 PO; -RENATAB6 PO; -SENO8.6T10 PO; -SYNT100T PO; -SYNT88TA2 PO; -[UNRECOGNIZED DRUG - OTHER] PO
== END ==
LOC: M RAD 12:43
DX: C79.82 Secondary malignant neoplasm of genital organs (principal)
CPT/HCPCS: Q9967

== ENCOUNTER → 2017-12-31 | Outpatient (REF) | payer MEDICARE ==
[2017-12-31 19:10] LABS: ALBUMIN 3.2 GM/DL (3.2-5.2); ALKALINE PHOSPHATASE 89 U/L (45-117); ALT/SGPT 32 U/L (12-78); ANION GAP 11 MEQ/L (8-16); AST/SGOT 34 U/L (7-37); BILIRUBIN,TOTAL 1.2 MG/DL (0.2-1.0); BLOOD UREA NITROGEN 26 MG/DL (7-18); CARBON DIOXIDE LEVEL 24 MEQ/L (21-32); CHLORIDE LEVEL 103 MEQ/L (98-107); CREATININE FOR GFR 2.85 MG/DL (0.70-1.30); GLOMERULAR FILTRATION RATE 23.4 (>42); GLUCOSE, FASTING 116 MG/DL (70-100); POTASSIUM SERUM 4.3 MEQ/L (3.5-5.1); PROSTATIC SPECIFIC AG MONITOR < 0.01 NG/ML (< 4.0); SODIUM LEVEL 138 MEQ/L (136-145); TESTOSTERONE 13 NG/DL (241-827); TOTAL PROTEIN 6.4 GM/DL (6.4-8.2)
== END ==
LOC: M LAB REF 17:24
DX: C79.82 Secondary malignant neoplasm of genital organs (principal)

== ENCOUNTER → 2018-01-08 | Outpatient (CLI) | payer MEDICARE | LOC: M PLARAD 11:32 | DX: C61 Malignant neoplasm of prostate (principal); C78.02 Secondary malignant neoplasm of left lung | CPT/HCPCS: 78815 ==

== ENCOUNTER → 2018-03-06 | Outpatient (CLI) | payer MEDICARE | LOC: M ONCR 13:54 | DX: C61 Malignant neoplasm of prostate (principal) | CPT/HCPCS: G0463 ==

== ENCOUNTER → 2018-06-27 | Outpatient (REF) | payer MEDICARE ==
[~2018-06-27] MED LIST changes: +/AMIO20TA PO; +/HYDR10TAB PO; +/PANT40TA PO; +ACET65TA; +AMLO2.5T PO; +APAP325T PO; +ARTH650T11 PO; +ATOR1TAB21 PO; +AVOD0.5C; +CALC0.25 PO; +CALC1CAP31 PO; +CARV12.5 PO; +CARV6.25 PO; +COLA50CA3 PO; +COUM1TAB17 PO; +COUM2TAB22 PO; +COZA50TA PO; +FOSA70TA PO; -ISOVUE-370 76% 100ML VIAL (Q9967) As Ordered; +LEVA250T; +LEVO75TA4 PO; +LOPR50TA; +LOSA100T36 PO; +LOSA100T50 PO; +LOSA50TA88 PO; +MUPI1POW TOP; +NEPHROVITE; +NORCOTAB PO; +NORV5TAB; +PANT40TA3 PO; +PERC5TAB8; +PHOSLO667 MG; +RENATAB5 PO; +RENATAB6 PO; +SENO8.6T10 PO; +SYNT100T PO; +SYNT88TA2 PO; +[UNRECOGNIZED DRUG - OTHER] PO
== END ==
LOC: M LAB REF 17:40
PROVIDERS: ATTEND Internal Medicine Medical Oncology
DX: N18.6 End stage renal disease (principal)

== ENCOUNTER → 2018-10-04 | Outpatient (REF) | payer MEDICARE ==
[~2018-10-04] MED LIST changes: -/AMIO20TA PO; -/HYDR10TAB PO; -/PANT40TA PO; +ALEN35TA37 PO; +AMIO1TAB PO; +HYDR-3677 PO; +HYDR-3715 PO; -NORCOTAB PO; +PROT1TAB2 PO
[2018-10-04 19:00] LABS: ALBUMIN 3.1 GM/DL (3.2-5.2); ALT/SGPT 34 U/L (12-78); BILIRUBIN,TOTAL 0.8 MG/DL (0.2-1.0); BLOOD UREA NITROGEN 32 MG/DL (7-18); CALCIUM LEVEL 8.7 MG/DL (8.8-10.2); CARBON DIOXIDE LEVEL 25 MEQ/L (21-32); CHLORIDE LEVEL 104 MEQ/L (98-107); GLOMERULAR FILTRATION RATE 20.4 (>42); GLUCOSE, FASTING 119 MG/DL (70-100); POTASSIUM SERUM 4.1 MEQ/L (3.5-5.1); PROSTATIC SPECIFIC AG MONITOR < 0.01 NG/ML (< 4.00); SODIUM LEVEL 138 MEQ/L (136-145); TOTAL PROTEIN 6.3 GM/DL (6.4-8.2)
== END ==
LOC: M LAB REF 18:06
PROVIDERS: ATTEND Internal Medicine Medical Oncology
DX: N18.6 End stage renal disease (principal); Z12.5 Encounter for screening for malignant neoplasm of prostate

== ENCOUNTER 2018-11-25 20:45 | Emergency (ER) | payer MEDICARE ==
[~2018-11-25] VITALS: Ht 172.7 cm; Wt 67.3 kg
[2018-11-25 22:44] LABS: HEMATOCRIT 31.3 % (42.0-52.0); HEMOGLOBIN 10.8 g/dl (13.5-17.5); MEAN CORPUSCULAR HEMOGLOBIN 31.7 pg (27.0-33.0); MEAN CORPUSCULAR HGB CONC 34.5 g/dl (32.0-36.5); MEAN CORPUSCULAR VOLUME 91.8 fl (80.0-96.0); PLATELET COUNT, AUTOMATED 273 10^3/uL (150-450); RED BLOOD COUNT 3.41 10^6/uL (4.30-6.10); WHITE BLOOD COUNT 10.5 10^3/uL (4.0-10.0)
[2018-11-25 22:57] LABS: INR 4.4; PROTHROMBIN TIME 42.2 SECONDS (11.8-14.0)
[2018-11-25 22:59] LABS: PARTIAL THROMBOPLASTIN TIME 61.7 SECONDS (25.0-38.4)
[2018-11-25 23:10] LABS: CREATININE FOR GFR 2.78 MG/DL (0.70-1.30); POTASSIUM SERUM 3.5 MEQ/L (3.5-5.1)
[2018-11-25] MEDS ORDERED: PERCOCET 5MG/325MG TAB PO ONE (23:15)
[2018-11-25] MEDS ORDERED: BENZONATATE 100 MG CAP PO ONE (23:15)
[2018-11-26] MEDS ORDERED: OXYC1TAB23 PO (00:34)
[2018-11-26] MEDS ORDERED: OXYCODONE/APAP 5MG/325MG(BULK FOR ED) 1 TABLET PO ONE (00:45)
[2018-11-26 01:27] VITALS: BP 144/66
== END 2018-11-26 01:27 | disposition home or self-care (01) ==
LOC: M ED 20:45
DX: S36.62XA Contusion of rectum, initial encounter (principal); D68.8 Other specified coagulation defects; X58.XXXA Exposure to other specified factors, initial encounter; Y92.9 Unspecified place or not applicable; Y93.89 Activity, other specified; Y99.9 Unspecified external cause status; R05 Cough; I48.91 Unspecified atrial fibrillation; I10 Essential (primary) hypertension; N18.6 End stage renal disease; Z85.46 Personal history of malignant neoplasm of prostate; Z95.1 Presence of aortocoronary bypass graft; Z79.899 Other long term (current) drug therapy

== ENCOUNTER → 2018-12-26 | Outpatient (REF) | payer MEDICARE ==
[~2018-12-26] MED LIST changes: +OXYC1TAB23 PO
[2018-12-26 19:13] LABS: PROSTATIC SPECIFIC AG MONITOR < 0.01 NG/ML (< 4.00)
[2018-12-26 19:25] LABS: TESTOSTERONE 12 NG/DL (241-827)
== END ==
LOC: M LAB REF 17:28
PROVIDERS: ATTEND Internal Medicine Medical Oncology
DX: C78.01 Secondary malignant neoplasm of right lung (principal); C61 Malignant neoplasm of prostate

== ENCOUNTER → 2019-03-25 | Outpatient (REF) | payer MEDICARE ==
[~2019-03-25] MED LIST changes: -ALEN35TA37 PO; +ALEN35TA6 PO
== END ==
LOC: M LAB REF 17:21
PROVIDERS: ATTEND Internal Medicine Medical Oncology
DX: C61 Malignant neoplasm of prostate (principal); C78.01 Secondary malignant neoplasm of right lung

== ENCOUNTER → 2019-06-23 | Outpatient (REF) | payer MEDICARE ==
[~2019-06-23] MED LIST changes: -ARTH650T11 PO; +ARTH650T4 PO
== END ==
LOC: M LAB REF 16:47
PROVIDERS: ATTEND Internal Medicine Medical Oncology
DX: Z79.899 Other long term (current) drug therapy (principal)

== ENCOUNTER → 2019-09-19 | Outpatient (REF) | payer MEDICARE | LOC: M LAB REF 16:42 | PROVIDERS: ATTEND Internal Medicine Medical Oncology | DX: R97.20 Elevated prostate specific antigen [PSA] (principal) ==

== ENCOUNTER → 2019-12-03 | Outpatient (REF) | payer MEDICARE ==
[~2019-12-03] MED LIST changes: +ALEN35TA54 PO; -ALEN35TA6 PO; +ARTH650T11 PO; -ARTH650T4 PO; +PANT40TA29 PO; -PANT40TA3 PO
== END ==
LOC: M LAB REF 16:19
PROVIDERS: ATTEND Dermatology
DX: C44.519 Basal cell carcinoma of skin of other part of trunk (principal)
CPT/HCPCS: 11102; 88305; G0463

== ENCOUNTER → 2019-12-17 | Outpatient (CLI) | payer MEDICARE ==
--- NOTE | 2019-12-17 16:07 | RADONC ---
Radiation Oncology Hx/FUP Radiation Oncology Consult Date of Service: Dec 17, 2019 Pt Identifier Etienne Florez is a 74 year old male seen for a followup visit today at the department of radiation oncology for a history of oligometastatic prostate cancer with a solitary RLL lung nodule. He has been on continuous Lupron since 11/09/16. His last injection was a 6 month shot and given 07/10/19. This was under the care of Dr. Colby. With her leaving he wishes to follow with me in radiation oncology alone for now. Diagnosis/Treatment History Oncologic History History of ESRD on PD (Dr. Ellis). Diagnosed with localized high risk prostate cancer [id number] Ashu 3+4=7 PSA 97.29. He presented with obstructive uropathy. He underwent EBRT to 77.4 Gy in 43 fractions completed 10/26/18. He had concurrent ADT which was < 6months duration. His PSA remained low until 2016 when it was noted to be rising. He was restaged with a bone scan and CTs. This was followed by MRI of the R hip d/t concern of radiotracer uptake, which was negative. The CT chest revealed a solitary 2 cm RLL nodule, a PET-CT was done which showed avidity in the lesion which was then biopsied and showed metastatic prostate cancer. He subsequently began continuous lupron from 11/09/16 to 07/10/19 during this period with undetectable PSA as of last check on 09/19/19. Interval History He is seen today feeling well overall. He has no complaints of bone pain. No pulmonary or GI symptoms of concern. PD is going well. He has no pulmonary complaints. He has no significant hot flashes at this time. He however, would like to remain off lupron. Current Therapy None Stage Prostate cancer stage IVB Social History: Former smoker, quit 1970s Allergies / Meds Allergies: Coded Allergies: No Known Allergies (Unverified , 11/25/18) Home Meds Active Scripts Oxycodone HCl/Acetaminophen (Oxycodone-Acetaminophen 5-325) 1 Each Tablet, 1 TAB PO TIDP PRN for pain MDD 3 Tablet(s) for 5 Days, #15 TAB Prov:JEWEL LAST MD 11/26/18 Levothyroxine Sodium (LEVOTHYROXINE SODIUM) 75 Mcg Tab, 0.075 MG PO DAILY@06, #30 TAB Prov:SUSAN FAYE MD 11/25/15 Carvedilol (Carvedilol) 12.5 Mg Tab, 12.5 MG PO BID@08,20, #60 TAB hold for sbp<120 or hr<60 Prov:SUSAN FAYE MD 11/25/15 Reported Medications Alendronate Sodium (Alendronate Sodium) 35 Mg Tablet, 35 MG PO 1XWK 10/08/18 Alendronate Sodium (Fosamax) 70 Mg Tab, 35 MG PO Q7D for 30 Days, #4 TAB in the morning, at least 30 minutes before the first food, beverage, or medication of the day 07/08/18 Acetaminophen (Arthritis Pain Relief) 650 Mg Tab, 650 MG PO PRN PRN for PAIN, TAB 10/25/16 Mupirocin (Mupirocin) 1 Pow Pow, TOP PRN 10/25/16 Losartan Potassium (Losartan Potassium) 50 Mg Tab, 50 MG PO DAILY, TAB 10/25/16 Pantoprazole Sodium (Pantoprazole Sodium) 40 Mg Tab, 40 MG PO QAM, TAB TAKE BEFORE BREAKFAST 11/20/15 Vit B Comp No.3/Folic/C/Biotin ([facility] Rx Tablet) 1 Tab Tab, 1 TAB PO DAILY, TAB 11/20/15 Atorvastatin Calcium (Atorvastatin Calcium) 20 Mg Tab, 20 MG PO DAILY, TAB 11/20/15 Calcitriol (Calcitriol) 0.25 Mcg Cap, 0.25 PO 5XW, CAP SEE COMMENTS 11/20/15 Review of Systems Review of Systems General: Denies: ROS Unobtainable, Chills, Night Sweats, Fatigue, Malaise, Normal Appetite, Other Symptoms Constitutional: Denies: ROS Unabtainable, Chills, Fever, Malaise, Night Sweats, Weakness, Fatigue, Weight Loss, Lethargy, Normal appetite, Other symptoms Eyes: Denies: Pain, Vision change, Conjunctivae inflammation, Eyelid inflammation, Redness, Other HEENT: Denies: Head Aches, Ear Pain, Dysphagia, Sinus Congestion, Post Nasal Drip, Sore Throat, Epistaxis, Other Symptoms Skin: Denies: Rash, Lesions, Jaundice, Bruising, Other Breast: Denies: New Breast Lumps / Masses, Nipple Retraction, Nipple Discharge, Breast Skin Changes, Breast Pain or Tenderness, Other Breast Complaints Pulmonary: Denies: Dyspnea, Cough, Pleuritic Chest Pain, Other Symptoms Cardiovascular: Denies: Chest Pain, Palpitations, Orthopnea, Paroxysmal Noc. Dyspnea, Edema, Lt Headedness, Other Symptoms Gastrointestinal: Denies: Nausea, Vomiting, Abdominal Pain, Diarrhea, Constipation, Melena, Hematochezia, Other Symptoms Genitourinary: Denies: Dysuria, Frequency, Incontinence, Hematuria, Retention, Other Symptoms Hematologic: Denies: Bruising, Bleeding Excessively, Petecchia, Purpura, Enlarged Lymph Nodes, Other Hematologic Endocrine: Denies: Polydipsia, Polyphagia, Polyuria, Heat Intolerance, Cold Intolerance, Other Endocrine Sx Musculoskeletal: Denies: Neck pain, Shoulder pain, Arm pain, Back pain, Hand pain, Leg pain, Foot pain, Joint pain, Muscle pain, Spasms, Gout, Joint sweling, Muscle stiffness, Midthoracic pain, Other Neurological: Denies: Weakness, Numbness, Incoordination, Change in Speech, Confusion, Seizures, Other Symptoms Psych: Denies: Mood Normal, Anxiety, Depression, Memory Issues, Thoughts of Self Harm, Anger, Thoughts of harming Other, Other Psych Physical Examination General Exam: Positive: Alert, Cooperative, No Acute Distress Eye Exam: Positive: PERRLA, EOMI ENT EXAM: Positive: Atraumatic, Mucous membr. moist/pink Neck Exam: Positive: Supple Chest Exam: Positive: Clear to auscultation, Normal air movement Heart Exam: Positive: Rate Normal, Regular Rhythm Abdomen Exam: Positive: Normal bowel sounds, Soft; Negative: Tenderness Skin Exam: Positive: Nl turgor and temperature Neuro Exam: Positive: Normal Gait Psych Exam: Positive: Mental status NL, Mood NL Diagnostic and Laboratory Diagnostic Review Radiologic images, relevant labs and pathology reports were personally reviewed and discussed with Mr. Florez. PSA 09/19/19 <0.01 Assessment and Plan Impression Assessment Mr. Florez is a 74 year old male seen for a followup visit today at the department of radiation oncology for a history of oligometastatic prostate cancer with a solitary RLL lung nodule. He has been on continuous Lupron since 11/09/16. His last injection was a 6 month shot and given 07/10/19. This was under the care of Dr. Colby. With her leaving, he wishes to follow with me in radiation oncology alone for now. He also expressed a desire to trial off of lupron, which I think is entirely r easonable given that the only known site of metastasis was the RLL nodule which in the setting of rising PSA (if his PSA does indeed rise once his lupron wears off), could be reliably followed (in the course of routine restaging CTs and bone scan). I explained to him that given the long natural history of his disease if the solitary pulmonary recurrence were to manifest in time that I would enthusiastically offer SBRT as an alternative for this compared to ADT which has a less favorable side effect profile (especially on the metabolic side). There is emerging data for this strategy such as the SABR-COMET and ORIOLE trials (ORIOLE is specifically pertinent to oligometastatic prostate cancer). If his PSA were to rise and there was no regrowth of the known pulm onary metastasis, then we could restage and discuss continuing ADT either intermittently or continuously, or delaying reintroduction of ADT until overt clinical progression, which again given the natural history of his cancer could take years. I would be happy to oversee his ADT, or if he wishes, to re-refer him to a new medical oncologist. He is in agreement with PSA monitoring for now and close follow up. I will see him in 3 months with PSA and testosterone. Performance Status ECOG 0 Plan PSA and testosterone in 3 months time Mr. Florez was encouraged to call with questions or concerns in the interim period. TRINITY REAL MD Dec 17, 2019 16:07
== END ==
LOC: M ONCR 14:02
PROVIDERS: ATTEND General Practice
DX: C61 Malignant neoplasm of prostate (principal); C78.01 Secondary malignant neoplasm of right lung; Z87.891 Personal history of nicotine dependence

== ENCOUNTER → 2020-02-23 | Outpatient (REF) | payer BC, MEDICARE | LOC: M LAB REF 16:30 | PROVIDERS: ATTEND Dermatology | DX: Z85.828 Personal history of other malignant neoplasm of skin (principal) ==

== ENCOUNTER → 2020-03-17 | Outpatient (REF) | payer MEDICARE, BC ==
[2020-03-17 18:11] LABS: PROSTATIC SPECIFIC AG MONITOR 0.82 NG/ML (< 4.00)
== END ==
LOC: M LAB REF 17:16
PROVIDERS: ATTEND General Practice
DX: C61 Malignant neoplasm of prostate (principal)

== ENCOUNTER → 2020-03-24 | Outpatient (CLI) | payer MEDICARE ==
--- NOTE | 2020-03-24 16:03 | RADONC ---
Radiation Oncology Hx/FUP Radiation Oncology Hx/FUP Date of Service: Mar 24, 2020 Pt Identifier Etienne Florez is a 75 year old male seen for a followup visit today at the department of radiation oncology for a history of oligometastatic prostate cancer with a biopsy proven solitary RLL lung nodule. He has been on continuous Lupron since 11/09/16, which was in response to the detection of this lesion in the setting of rising PSA. His last ADT was a 6 month shot and given 07/10/19. He followed up with me on 12/17/19 at which time we decided to trial off of ADT and monitor his PSA response as testosterone normalized. Diagnosis/Treatment History Oncologic History History of ESRD on PD (Dr. Ellis). Diagnosed with localized high risk prostate cancer [id number] Ashu 3+4=7 PSA 97.29 in 2008. He presented with obstructive uropathy. He underwent EBRT to 77.4 Gy in 43 fractions completed 10/26/08. He had concurrent ADT which was < 6months duration. His PSA remained low until 2016 when it was noted to be rising to 3.21 on 10/10/16. He was restaged with a bone scan and CTs. This was followed by MRI of the R hip d/t concern of radiotracer uptake, which was negative. The CT chest revealed a solitary 2 cm RLL nodule, a PET-CT was done which showed avidity in the lesion which was then biopsied and showed metastatic prostate cancer. He subsequently began continuous lupron from 11/09/16 to 07/10/19 during this period with undetectable PSA as of last check on 09/19/19. PSA history 03/17/20 0.82 Testosterone 286 (post-ADT cessation) 09/19/19 <0.01 02/22/17 0.03 Testosterone 12 (post-ADT initiation) 10/10/16 3.21 Testosterone 317 11/23/15 1.54 06/30/09 0.07 05/10/08 97.29 Interval History Etienne is here and he feels very well. His energy level has improved greatly in the last few months, appetite good weight stable. Notes hair has returned on his legs. No pulmonary complaints. Doing home PD as before. Current Therapy Surveillance Stage Prostate cancer stage IVB Social History: Former smoker quit 1970s Does not drink Allergies / Meds Allergies: Coded Allergies: No Known Allergies (Unverified , 11/25/18) Home Meds Active Scripts Oxycodone HCl/Acetaminophen (Oxycodone-Acetaminophen 5-325) 1 Each Tablet, 1 TAB PO TIDP PRN for pain MDD 3 Tablet(s) for 5 Days, #15 TAB Prov:JEWEL LAST MD 11/26/18 Levothyroxine Sodium (LEVOTHYROXINE SODIUM) 75 Mcg Tab, 0.075 MG PO DAILY@06, #30 TAB Prov:SUSAN FAYE MD 11/25/15 Carvedilol (Carvedilol) 12.5 Mg Tab, 12.5 MG PO BID@08,20, #60 TAB hold for sbp<120 or hr<60 Prov:SUSAN FAYE MD 11/25/15 Reported Medications Alendronate Sodium (Alendronate Sodium) 35 Mg Tablet, 35 MG PO 1XWK 10/08/18 Alendronate Sodium (Fosamax) 70 Mg Tab, 35 MG PO Q7D for 30 Days, #4 TAB in the morning, at least 30 minutes before the first food, beverage, or medication of the day 07/08/18 Acetaminophen (Arthritis Pain Relief) 650 Mg Tab, 650 MG PO PRN PRN for PAIN, TAB 10/25/16 Mupirocin (Mupirocin) 1 Pow Pow, TOP PRN 10/25/16 Losartan Potassium (Losartan Potassium) 50 Mg Tab, 50 MG PO DAILY, TAB 10/25/16 Pantoprazole Sodium (Pantoprazole Sodium) 40 Mg Tab, 40 MG PO QAM, TAB TAKE BEFORE BREAKFAST 11/20/15 Vit B Comp No.3/Folic/C/Biotin ([facility] Rx Tablet) 1 Tab Tab, 1 TAB PO DAILY, TAB 11/20/15 Atorvastatin Calcium (Atorvastatin Calcium) 20 Mg Tab, 20 MG PO DAILY, TAB 11/20/15 Calcitriol (Calcitriol) 0.25 Mcg Cap, 0.25 PO 5XW, CAP SEE COMMENTS 11/20/15 Review of Systems Review of Systems Constitutional: Denies: Chills, Fever, Weakness, Fatigue Eyes: Denies: Pain HEENT: Denies: Head Aches Skin: Denies: Rash Pulmonary: Denies: Dyspnea, Cough Cardiovascular: Denies: Chest Pain, Palpitations Gastrointestinal: Denies: Nausea, Vomiting, Abdominal Pain Genitourinary: Denies: Dysuria, Frequency, Incontinence Hematologic: Denies: Bruising Musculoskeletal: Denies: Neck pain, Back pain Neurological: Denies: Weakness, Numbness Psych: Reports: Mood Normal Physical Examination Vital Signs Ht 68" Wt 153 lbs T 98 P 71 RR 16 BP 184/91 O2 98% Pain 0 Fatigue 0 Diagnostic and Laboratory Diagnostic Review Radiologic images, relevant labs and pathology reports were personally reviewed and discussed with Mr. Florez. Assessment and Plan Impression Assessment Mr. Florez is a 75 year old male with a history of oligometastatic prostate cancer with a biopsy proven solitary RLL lung nodule. He has been on continuous Lupron since 11/09/16, which was in response to the detection of this lesion in the setting of rising PSA. His last ADT was a 6 month shot and given 07/10/19. He followed up with me on 12/17/19 at which time we decided to trial off of ADT and monitor his PSA response as testosterone normalized. He is doing well clinically with no symptoms of recurrence. In fact he feels much more energetic off of lupron. His testosterone has normalized rapidly and is currently 286, his PSA too has come up to 0.82, but in the setting of testosterone normalization I am not overly concerned by this single measurement. I discussed with him that further observation of his PSA trend is appropriate at this time, if PSA exceeds 1.5 ng/ml, then I will restage with CT chest abdomen and pelvis with bone scan. If the known RLL nodule recurs radiographically, and remains a solitary disease focus then I would proceed with SBRT in his case. If his PSA continues to elevate past the aforementioned threshold and all disease r emains radiographically occult on conventional imaging then we can attempt to obtain an auxumin or PSMA PET-CT. If PSA rises precipitously on subsequent measurements in the absence of radiographic disease we could then discuss intermittent versus continuous ADT again, or wait until clinical progression to initiate. All told at this time we will repeat PSA and testosterone in 3 months. He agrees with the plan. Performance Status ECOG 0 Plan PSA testosterone 3 months time Mr. Florez was encouraged to call with questions or concerns in the interim period. TRINITY REAL MD Mar 24, 2020 16:03
== END ==
LOC: M ONCR 14:54
PROVIDERS: ATTEND General Practice
DX: C61 Malignant neoplasm of prostate (principal)

== ENCOUNTER → 2020-06-17 | Outpatient (REF) | payer MEDICARE | LOC: M LAB REF 15:26 | PROVIDERS: ATTEND General Practice | DX: C61 Malignant neoplasm of prostate (principal) ==

== ENCOUNTER → 2020-06-23 | Outpatient (CLI) | payer MEDICARE ==
[~2020-06-23] MED LIST changes: +CARV3.12 PO; +LOSA25TA14 PO
--- NOTE | 2020-06-24 09:09 | RADONC ---
Radiation Oncology Hx/FUP Radiation Oncology Hx/FUP Date of Service: Jun 24, 2020 Pt Identifier Etienne Florez is a 75 year old male seen for a followup visit today at the department of radiation oncology for a history of oligometastatic prostate cancer with a biopsy proven solitary RLL lung nodule. He has been on continuous Lupron since 11/09/16, which was in response to the detection of this lesion in the setting of rising PSA. His last ADT was a 6 month shot and given 07/10/19. He followed up with me on 12/17/19 at which time we decided to trial off of ADT and monitor his PSA response as testosterone normalized. Diagnosis/Treatment History Oncologic History History of ESRD on PD (Dr. Ellis). Diagnosed with localized high risk prostate cancer [id number] Ashu 3+4=7 PSA 97.29 in 2008. He presented with obstructive uropathy. He underwent EBRT to 77.4 Gy in 43 fractions completed 10/26/08. He had concurrent ADT which was < 6months duration. His PSA remained low until 2016 when it was noted to be rising to 3.21 on 10/10/16. He was restaged with a bone scan and CTs. This was followed by MRI of the R hip d/t concern of radiotracer uptake, which was negative. The CT chest revealed a solitary 2 cm RLL nodule, a PET-CT was done which showed avidity in the lesion which was then biopsied and showed metastatic prostate cancer. He subsequently began continuous lupron from 11/09/16 to 07/10/19 during this period with undetectable PSA as of last check on 09/19/19. 12/17/19 Patient decided to trial off ADT, d/t side effects and reduced QOL. PSA history 06/17/20 1.12 03/17/20 0.82 Testosterone 286 (post-ADT cessation) 09/19/19 <0.01 02/22/17 0.03 Testosterone 12 (post-ADT initiation) 10/10/16 3.21 Testosterone 317 11/23/15 1.54 06/30/09 0.07 05/10/08 97.29 Interval History Etienne feels fantastic. He has noted return of energy and stamina at work. He has noted return of axillary and pubic hair. His weight is stable. He is working a busy schedule. He has no pain or urinary complaints other than urgency around PD sessions. He has regular daily BMs. Current Therapy Surveillance Stage Prostate cancer stage IVB Social History: Former smoker quit 1970s Does not drink Allergies / Meds Allergies: Coded Allergies: No Known Allergies (Unverified , 11/25/18) Home Meds Active Scripts Levothyroxine Sodium (LEVOTHYROXINE SODIUM) 75 Mcg Tab, 0.075 MG PO DAILY@06, #30 TAB Prov:SUSAN FAYE MD 11/25/15 Reported Medications Carvedilol (Carvedilol) 3.125 Mg Tablet, 3.125 MG PO BID, TAB 06/23/20 Losartan Potassium (Losartan Potassium) 25 Mg Tablet, 25 MG PO DAILY, TAB 06/23/20 Acetaminophen (Arthritis Pain Relief) 650 Mg Tab, 650 MG PO PRN PRN for PAIN, TAB 10/25/16 Mupirocin (Mupirocin) 1 Pow Pow, TOP PRN 10/25/16 Pantoprazole Sodium (Pantoprazole Sodium) 40 Mg Tab, 40 MG PO QAM, TAB TAKE BEFORE BREAKFAST 11/20/15 Vit B Comp No.3/Folic/C/Biotin ([facility] Rx Tablet) 1 Tab Tab, 1 TAB PO DAILY, TAB 11/20/15 Atorvastatin Calcium (Atorvastatin Calcium) 20 Mg Tab, 20 MG PO DAILY, TAB 11/20/15 Calcitriol (Calcitriol) 0.25 Mcg Cap, 0.25 PO 5XW, CAP SEE COMMENTS 11/20/15 Discontinued Reported Medications Alendronate Sodium (Alendronate Sodium) 35 Mg Tablet, 35 MG PO 1XWK 10/08/18 Alendronate Sodium (Fosamax) 70 Mg Tab, 35 MG PO Q7D for 30 Days, #4 TAB in the morning, at least 30 minutes before the first food, beverage, or medication of the day 07/08/18 Losartan Potassium (Losartan Potassium) 50 Mg Tab, 50 MG PO DAILY, TAB 10/25/16 Discontinued Scripts Oxycodone HCl/Acetaminophen (Oxycodone-Acetaminophen 5-325) 1 Each Tablet, 1 TAB PO TIDP PRN for pain MDD 3 Tablet(s) for 5 Days, #15 TAB Prov:JEWEL LAST MD 11/26/18 Carvedilol (Carvedilol) 12.5 Mg Tab, 12.5 MG PO BID@08,20, #60 TAB hold for sbp<120 or hr<60 Prov:SUSAN FAYE MD 11/25/15 Review of Systems Review of Systems Constitutional: Denies: Fatigue, Weight Loss Eyes: Denies: Pain HEENT: Denies: Head Aches Skin: Denies: Rash Pulmonary: Denies: Dyspnea Cardiovascular: Denies: Chest Pain Gastrointestinal: Denies: Hematochezia Genitourinary: Denies: Dysuria, Frequency Musculoskeletal: Denies: Neck pain, Back pain Neurological: Denies: Weakness, Numbness Psych: Reports: Mood Normal Physical Examination Vital Signs Ht 68" Wt 155 lbs T 97.4 P 69 RR 18 BP 161/83 O2 99% Pain 0 Fatigue 0 General Exam: Positive: Alert, Cooperative, No Acute Distress Eye Exam: Positive: PERRLA, EOMI ENT EXAM: Positive: Atraumatic Neck Exam: Positive: Supple Heart Exam: Positive: Rate Normal Abdomen Exam: Positive: Soft; Negative: Tenderness Extremity Exam: Negative: Edema Skin Exam: Positive: Nl turgor and temperature Neuro Exam: Positive: Normal Gait, Normal Speech, Cranial Nerves 3-12 NL Psych Exam: Positive: Mental status NL Diagnostic and Laboratory Diagnostic Review Radiologic images, relevant labs and pathology reports were personally reviewed and discussed with Mr. Florez. Assessment and Plan Impression Assessment Mr. Florez is a 75 year old male with a history of oligometastatic prostate cancer with a biopsy proven solitary RLL lung nodule. He has been on continuous Lupron since 11/09/16, which was in response to the detection of this lesion in the setting of rising PSA. His last ADT was a 6 month shot and given 07/10/19. He followed up with me on 12/17/19 at which time we decided to trial off of ADT and monitor his PSA response as testosterone normalized. His PSA is up-trending but not at an alarming rate. He is enjoying life without ADT side effects. We discussed obtaining restaging scans now that PSA is over 1.00. I will order a bone scan, CT abdomen pelvis and CT chest given the prior metastatic lesion in the RLL. If there are a limited number of focal lesions on scans (NB the lung nodule) then we can pursue aggressive local therapy under oligometastatic paradigms (eg SABR-COMET). If there are no apparent lesions on conventional imaging then I would favor continuing to monitor PSA until it approaches 2.00, which is the threshold for 100% NPV with an Axumin PET-CT, which I would order at that time. He would have to travel to [place] for this. In addition I would also order an MRI of the prostate to assess for locally recurrent lesions, though I suspect t hat the Axumin PET-CT would reveal distant disease given his history. If he has local recurrence, then he may be appropriate for focal ablative therapies. His history of prior TURP (2008) is a contraindication to brachytherapy. He agreed to the above, will obtain scans now and discuss next steps by phone contingent upon the results of the imaging. Performance Status ECOG 0 Plan Restage: CT chest abdomen and pelvis, bone scan Follow up by phone after imaging results obtained Mr. Florez was encouraged to call with questions or concerns in the interim period. Billing Statement Total time of [25] minutes was spent preparing for the visit [1], obtaining HPI [3], examining the patient [1], reviewing diagnostic tests [3], discussing management options [7], coordinating care [1], and writing this note [9]. TRINITY REAL MD Jun 24, 2020 09:09
== END ==
LOC: M ONCR 14:59
PROVIDERS: ATTEND General Practice
DX: C61 Malignant neoplasm of prostate (principal)

== ENCOUNTER → 2020-07-05 | Outpatient (CLI) | payer MEDICARE ==
[~2020-07-05] MED LIST changes: +GASTROGRAFIN SOLUTION 30ML (Q9963) As Ordered ONE; +ISOVUE-370 76% 100ML VIAL As Ordered ONE
--- NOTE | 2020-07-05 18:14 | REP ---
INDICATION: PROSTATE CANCER,RISING PSA,KNOWN PULMONARY MET,RES. COMPARISON: 12/31/2017. TECHNIQUE: CT chest performed following the intravenous administration of 100 cc of Isovue 370. Sagittal and coronal reconstruction images are performed. FINDINGS: Lungs: Subtle 3 mm nodular density in the right upper lobe on image 37 is unchanged. There are scattered tiny calcified granulomas throughout the right lung. There is mild diffuse interstitial fibrotic change bilaterally. There is no new suspicious nodule or infiltrate. Mediastinum: No adenopathy. Jamilah: No adenopathy. Axilla: No adenopathy. Pleura: No effusion. Heart: Not enlarged. Thoracic aorta: No aneurysm or dissection. Upper abdominal structures: There is a small hiatal hernia. Visualized osseous structures: There are degenerative changes of the spine without compression deformity. Multiple sternal wires are present. IMPRESSION: Stable chronic changes in the lungs as discussed above. No new suspicious nodule or adenopathy. <Electronically signed by Adonis Raza > 07/05/20 [id number]
--- NOTE | 2020-07-05 18:22 | REP ---
INDICATION: PROSTATE CANCER,RISING PSA,KNOWN PULMONARY MET,RES COMPARISON: 11/20/2015. TECHNIQUE: CT Scan of the abdomen and pelvis was performed with intravenous administration of 100 cc of Isovue 370, and oral contrast. FINDINGS: Liver: Normal Gallbladder: There are multiple gallstones in the gallbladder. Spleen: Normal. Adrenals: Normal. Pancreas: Normal. Kidneys: There is severe right renal atrophy with multiple cystic structures noted of the right kidney. There is mild right hydronephrosis. There is moderate left renal atrophy. There are multiple cystic structures seen of the left kidney. There is mild left hydronephrosis.. Small and large bowel: Unremarkable. Free fluid: None. Abdominal aorta: No aneurysm or dissection. Adenopathy: None. Appendix: Not inflamed. Osseous structures: Unremarkable. Pelvis: No mass. Metallic markers are seen in the region of the prostate. Dialysis catheter is seen anteriorly with the tip in the right paracolic region. A tiny amount of air in the right upper quadrant anterior to the liver is compatible with patient's history of peritoneal dialysis. IMPRESSION: Multiple gallstones in the gallbladder. Bilateral renal atrophy with cystic changes of the kidneys. Peritoneal dialysis catheter with a tiny amount of air anterior to the liver consistent with peritoneal dialysis. No new mass or adenopathy. <Electronically signed by Adonis Raza > 07/05/20 [id number]
== END ==
LOC: M RAD 15:31
PROVIDERS: ATTEND General Practice
DX: C61 Malignant neoplasm of prostate (principal); K80.20 Calculus of gallbladder without cholecystitis without obstruction; N28.1 Cyst of kidney, acquired; N26.1 Atrophy of kidney (terminal); Z96.89 Presence of other specified functional implants; R91.1 Solitary pulmonary nodule; J84.10 Pulmonary fibrosis, unspecified
CPT/HCPCS: 71260; 74177; Q9963; Q9967

== ENCOUNTER → 2020-07-07 | Outpatient (CLI) | payer MEDICARE ==
[~2020-07-07] MED LIST changes: -GASTROGRAFIN SOLUTION 30ML (Q9963) As Ordered ONE; -ISOVUE-370 76% 100ML VIAL As Ordered ONE
--- NOTE | 2020-07-07 16:22 | RADENCPD ---
Date/Time of Encounter Date of Encounter: Jul 07, 2020 Time of Encounter: 16:15 Encounter Etienne came in for a brief follow up today to review his restaging CT scans. These do not show an obvious focus of metastatic disease including in the location of the previously identified right lung metastasis. We discussed obtaining bone scan to complete conventional restaging imaging. If the bone scan proves negative, then he would be appropriate for an Axumin PET-CT which with PSA >2.00 has a 100% NPV on studies, this would be of great use to exclude metastatic disease, or conversely identify an otherwise occult site of disease amenable to local therapy. The Axumin PET would necessitate a trip to [place] to complete, which Etienne is agreeable to. It could be done non-urgently in 2-3 months time which would be better for him with respect to his work and travel schedule. Plan: Bone scan now Will call with results If bone scan negative, then will pursue Axumin PET-CT in 2-3 months TRINITY REAL MD Jul 07, 2020 16:22
--- NOTE | 2020-07-16 08:47 | RADENCPD ---
Date/Time of Encounter Date of Encounter: Jul 16, 2020 Time of Encounter: 08:42 Encounter Called Etienne with his bone scan results demonstrating no evidence of osseous metastatic disease. He has now completed conventional restaging imaging without evidence of metastases, therefore we agreed to continue close PSA surveillance next in 3 months time. We can consider performing Axumin PET-CT in [place] if his PSA continues to rise. The benefit of Axumin is a reported 100% NPV when the PSA is >2.00. A negative Axumin PET would be very reassuring that he does not have metastatic prostate cancer and that his PSA rise is driven by a benign process. Conversely a positive Axumin PET-CT may reveal limited foci of disease amenable to SBRT, which would potentially extend Etienne's time off of ADT, which he prefers not to resume unless absolutely needed. Plan: 3 months with PSA TRINITY REAL MD Jul 16, 2020 08:47
== END ==
LOC: M ONCR 15:30
PROVIDERS: ATTEND General Practice
DX: C61 Malignant neoplasm of prostate (principal)

== ENCOUNTER → 2020-07-14 | Outpatient (CLI) | payer MEDICARE ==
--- NOTE | 2020-07-14 15:03 | REP ---
INDICATION: PROSTATE CA RESTAGING. COMPARISON: 10/05/2016. TECHNIQUE/RADIOTRACER AND DOSE: Following the intravenous administration of 22 mCi technetium 99 M MDP, patient's whole-body is imaged in multiple projections. FINDINGS: Arthritic uptake is seen in the left posterior cervical facets. There is arthritic uptake in both wrists and in the right foot. There is no compelling scintigraphic evidence of osseous metastases. Renal and bladder activity are seen. IMPRESSION: No compelling scintigraphic evidence of osseous metastases. <Electronically signed by Adonis Raza > 07/14/20 [id number]
== END ==
LOC: M RAD 11:00
PROVIDERS: ATTEND General Practice
DX: C61 Malignant neoplasm of prostate (principal)
CPT/HCPCS: 78306; A9503

== ENCOUNTER → 2020-10-14 | Outpatient (REF) | payer MEDICARE | LOC: M LAB REF 16:50 | PROVIDERS: ATTEND General Practice | DX: C61 Malignant neoplasm of prostate (principal) ==

== ENCOUNTER → 2020-10-20 | Outpatient (CLI) | payer MEDICARE ==
--- NOTE | 2020-10-20 16:29 | RADONC ---
Radiation Oncology Hx/FUP Radiation Oncology Hx/FUP Date of Service: Oct 20, 2020 Pt Identifier Etienne Florez is a 75 year old male seen for a followup visit today at the department of radiation oncology for a history of oligometastatic prostate cancer with a biopsy proven solitary RLL lung nodule. He has been on continuous Lupron since 11/09/16, which was in response to the detection of this lesion in the setting of rising PSA. His last ADT was a 6 month shot and given 07/10/19. He followed up with me on 12/17/19 at which time we decided to trial off of ADT due to unpleasant side effects and monitor his PSA response as testosterone normalized. Diagnosis/Treatment History Oncologic History History of ESRD on PD (Dr. Ellis). Diagnosed with localized high risk prostate cancer [id number] Ashu 3+4=7 PSA 97.29 in 2008. He presented with obstructive uropathy. He underwent EBRT to 77.4 Gy in 43 fractions completed 10/26/08. He had concurrent ADT which was < 6months duration. His PSA remained low until 2016 when it was noted to be rising to 3.21 on 10/10/16. He was restaged with a bone scan and CTs. This was followed by MRI of the R hip d/t concern of radiotracer uptake, which was negative. The CT chest revealed a solitary 2 cm RLL nodule, a PET-CT was done which showed avidity in the lesion which was then biopsied and showed metastatic prostate cancer. He subsequently began continuous lupron from 11/09/16 to 07/10/19 during this period with undetectable PSA as of last check on 09/19/19. 12/17/19 Patient decided to trial off ADT, d/t side effects and reduced QOL. PSA history 10/14/20 2.01 06/17/20 1.12 03/17/20 0.82 Testosterone 286 (post-ADT cessation) 09/19/19 <0.01 02/22/17 0.03 Testosterone 12 (post-ADT initiation) 10/10/16 3.21 Testosterone 317 11/23/15 1.54 06/30/09 0.07 05/10/08 97.29 Recent imagin07/14/20 Bone scan negative 07/05/20 CT chest : Subtle 3 mm nodular density in the right upper lobe on image 37 is unchanged. There are scattered tiny calcified granulomas throughout the right lung. There is mild diffuse interstitial fibrotic change bilaterally. There is no new suspicious nodule or infiltrate. Mediastinum: No adenopathy. Jamilah: No adenopathy. Axilla: No adenopathy. Pleura: No effusion. Heart: Not enlarged. Thoracic aorta: No aneurysm or dissection. Upper abdominal structures: There is a small hiatal hernia. Visualized osseous structures: There are degenerative changes of the spine without compression deformity. Multiple sternal wires are present. IMPRESSION: Stable chronic changes in the lungs as discussed above. No new suspicious nodule or adenopathy. 07/05/20 CT abdomen pelvis IMPRESSION: Multiple gallstones in the gallbladder. Bilateral renal atrophy with cystic changes of the kidneys. Peritoneal dialysis catheter with a tiny amount of air anterior to the liver consistent with peritoneal dialysis. No new mass or adenopathy. Interval History Etienne is recovering from a bout of peritonitis. Occurred when his dialysate bag ruptured in the night. Developed abdominal pain and started intraperitoneal antibiotics right away with rapid improvement. Culture was positive per his report. Working a full schedule per usual. 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 Current Therapy Surveillance Stage Prostate cancer stage IVB Social History: Former smoker quit 1970s Does not drink Allergies / Meds Allergies: Coded Allergies: No Known Allergies (Unverified , 11/25/18) Home Meds Active Scripts Levothyroxine Sodium (LEVOTHYROXINE SODIUM) 75 Mcg Tab, 0.075 MG PO DAILY@06, #30 TAB Prov:SUSAN FAYE MD 11/25/15 Reported Medications Carvedilol (Carvedilol) 3.125 Mg Tablet, 3.125 MG PO BID, TAB 06/23/20 Losartan Potassium (Losartan Potassium) 25 Mg Tablet, 25 MG PO DAILY, TAB 06/23/20 Acetaminophen (Arthritis Pain Relief) 650 Mg Tab, 650 MG PO PRN PRN for PAIN, TAB 10/25/16 Mupirocin (Mupirocin) 1 Pow Pow, TOP PRN 10/25/16 Pantoprazole Sodium (Pantoprazole Sodium) 40 Mg Tab, 40 MG PO QAM, TAB TAKE BEFORE BREAKFAST 11/20/15 Vit B Comp No.3/Folic/C/Biotin ([facility] Rx Tablet) 1 Tab Tab, 1 TAB PO DAILY, TAB 11/20/15 Atorvastatin Calcium (Atorvastatin Calcium) 20 Mg Tab, 20 MG PO DAILY, TAB 11/20/15 Calcitriol (Calcitriol) 0.25 Mcg Cap, 0.25 PO 5XW, CAP SEE COMMENTS 11/20/15 Review of Systems Review of Systems Constitutional: Denies: Chills, Fever, Fatigue Eyes: Denies: Pain HEENT: Denies: Head Aches Gastrointestinal: Denies: Nausea, Vomiting, Abdominal Pain, Hematochezia Genitourinary: Denies: Dysuria, Frequency Neurological: Denies: Weakness, Numbness Psych: Reports: Mood Normal Physical Examination Vital Signs Wt 147 lbs T 97.6 P 88 RR 18 BP 170/101 O2 100% Pain 0 Fatigue 0 General Exam: Positive: Alert, Cooperative, No Acute Distress Eye Exam: Positive: PERRLA, EOMI ENT EXAM: Positive: Atraumatic Neck Exam: Positive: Supple Chest Exam: Positive: Clear to auscultation Heart Exam: Positive: Rate Normal Abdomen Exam: Positive: Normal bowel sounds Male Exam: Positive: Normal Prostate, Normal Sphincter Tone Extremity Exam: Negative: Edema Skin Exam: Positive: Nl turgor and temperature Neuro Exam: Positive: Normal Gait, Normal Speech, Cranial Nerves 3-12 NL Psych Exam: Positive: Mental status NL Diagnostic and Laboratory Diagnostic Review Radiologic images, relevant labs and pathology reports were personally reviewed and discussed with Mr. Florez. Assessment and Plan Impression Assessment Mr. Florez is a 75 year old male with a history of oligometastatic prostate cancer with a biopsy proven solitary RLL lung nodule. He has been on continuous Lupron since 11/09/16, which was in response to the detection of this lesion in the setting of rising PSA. His last ADT was a 6 month shot and given 07/10/19. He followed up with me on 12/17/19 at which time we decided to trial off of ADT due to unpleasant side effects and monitor his PSA response as testosterone normalized. His PSA has increased to 2.01 which is a significant increase, one it means his doubling time is <6 months and he has now passed the threshold for which an axumin PET-CT has a reported 100% NPV. I discussed obtaining axumin PET-CT as a next step to reveal the location of any metastatic disease now that conventional imaging is negative and his PSA is rising on 3 serial measurements. He would like to defer for another month, recheck PSA and schedule the axumin PET at that time. I have no objection to this as he is a busy man and only just recovered from peritonitis. Performance Status ECOG 0 Plan Recheck PSA 1 month, then schedule Axumin PET-CT as discussed above Will call in 1 month to facilitate Mr. Florez was encouraged to call with questions or concerns in the interim period. Billing Statement Total time of [25] minutes was spent preparing for the visit [2], obtaining HPI [7], examining the patient [1], reviewing diagnostic tests [3], discussing management options [4], coordinating care [1], and writing this note [7]. TRINITY REAL MD Oct 20, 2020 16:29
== END ==
LOC: M ONCR 15:27
PROVIDERS: ATTEND General Practice
DX: C61 Malignant neoplasm of prostate (principal)

== ENCOUNTER → 2021-03-01 | Outpatient (CLI) | payer MEDICARE ==
[~2021-03-01] MED LIST changes: -ALEN35TA54 PO; +ALEN35TA56 PO
--- NOTE | 2021-03-01 15:24 | RADONC ---
Radiation Oncology Hx/FUP Radiation Oncology Hx/FUP Date of Service: Mar 01, 2021 Pt Identifier Etienne Florez is a 76 year old male seen for a followup visit today at the department of radiation oncology for a history of oligometastatic prostate cancer with a biopsy proven solitary RLL lung nodule. He has been on continuous Lupron since 11/09/16, which was in response to the detection of this lesion in the setting of rising PSA. His last ADT was a 6 month shot and given 07/10/19. He followed up with me on 12/17/19 at which time we decided to trial off of ADT due to unpleasant side effects and monitor his PSA response as testosterone normalized. Diagnosis/Treatment History Oncologic History 02/23/21 1.80 11/20/20 1.98 10/14/20 2.01 06/17/20 1.12 03/17/20 0.82 Testosterone 286 (post-ADT cessation) 09/19/19 <0.01 02/22/17 0.03 Testosterone 12 (post-ADT initiation) 10/10/16 3. Testosterone 317 11/23/15 1.54 06/30/09 0.07 05/10/08 97.29 Recent imagin07/14/20 Bone scan negative 07/05/20 CT chest Subtle 3 mm nodular density in the right upper lobe on image 37 is unchanged. There are scattered tiny calcified granulomas throughout the right lung. There is mild diffuse interstitial fibrotic change bilaterally. There is no new suspicious nodule or infiltrate. Mediastinum: No adenopathy. Jamilah: No adenopathy. Axilla: No adenopathy. Pleura: No effusion. Heart: Not enlarged. Thoracic aorta: No aneurysm or dissection. Upper abdominal structures: There is a small hiatal hernia. Visualized osseous structures: There are degenerative changes of the spine without compression deformity. Multiple sternal wires are present. IMPRESSION: Stable chronic changes in the lungs as discussed above. No new suspicious nodule or adenopathy. 07/05/20 CT abdomen pelvis IMPRESSION: Multiple gallstones in the gallbladder. Bilateral renal atrophy with cystic changes of the kidneys. Peritoneal dialysis catheter with a tiny amount of air anterior to the liver consistent with peritoneal dialysis. No new mass or adenopathy. Interval History Etienne feels well, working hard as ever. No complaints. Energy levels and appetite intact, weight stable. No pain. Current Therapy Surveillance Stage Prostate cancer stage IVB Social History: Former smoker quit 1970s Does not drink Allergies / Meds Allergies: Coded Allergies: No Known Allergies (Unverified , 11/25/18) Home Meds Active Scripts Levothyroxine Sodium (LEVOTHYROXINE SODIUM) 75 Mcg Tab, 0.075 MG PO DAILY@06, #30 TAB Prov:SUSAN FAYE MD 11/25/15 Reported Medications Carvedilol (Carvedilol) 3.125 Mg Tablet, 3.125 MG PO BID, TAB 06/23/20 Losartan Potassium (Losartan Potassium) 25 Mg Tablet, 25 MG PO DAILY, TAB 06/23/20 Acetaminophen (Arthritis Pain Relief) 650 Mg Tab, 650 MG PO PRN PRN for PAIN, TA B 10/25/16 Mupirocin (Mupirocin) 1 Pow Pow, TOP PRN 10/25/16 Pantoprazole Sodium (Pantoprazole Sodium) 40 Mg Tab, 40 MG PO QAM, TAB TAKE BEFORE BREAKFAST 11/20/15 Vit B Comp No.3/Folic/C/Biotin ([facility] Tablet) 1 Tab Tab, 1 TAB PO DAILY, TAB 11/20/15 Atorvastatin Calcium (Atorvastatin Calcium) 20 Mg Tab, 20 MG PO DAILY, TAB 11/20/15 Calcitriol (Calcitriol) 0.25 Mcg Cap, 0.25 PO 5XW, CAP SEE COMMENTS 11/20/15 Review of Systems Review of Systems Constitutional: Denies: Fatigue, Weight Loss Eyes: Denies: Pain HEENT: Denies: Head Aches Cardiovascular: Denies: Chest Pain Gastrointestinal: Denies: Abdominal Pain Musculoskeletal: Denies: Neck pain, Back pain Neurological: Denies: Weakness, Numbness Psych: Reports: Mood Normal Physical Examination Vital Signs Wt 149 lbs P 96 RR 18 BP 185/95 O2 100% Pain 0 Fatigue 0 General Exam: Alert, Cooperative, No Acute Distress Eye Exam: PERRLA, EOMI ENT EXAM: Atraumatic Neck Exam: Supple Chest Exam: Clear to auscultation Heart Exam: Rate Normal Abdomen Exam: Soft Extremity Exam: Negative: Edema Skin Exam: Nl turgor and temperature Neuro Exam: Normal Gait, Normal Speech, Cranial Nerves 3-12 NL Psych Exam: Mental status NL Diagnostic and Laboratory Diagnostic Review Radiologic images, relevant labs and pathology reports were personally reviewed and discussed with Mr. Florez. Assessment and Plan Impression Assessment Mr. Florez is a 76 year old male with a history of oligometastatic prostate cancer with a biopsy proven solitary RLL lung nodule. He has been on continuous Lupron since 11/09/16, which was in response to the detection of this lesion in the setting of rising PSA. His last ADT was a 6 month shot and given 07/10/19. He followed up with me on 12/17/19 at which time we decided to trial off of ADT due to unpleasant side effects and monitor his PSA response as testosterone normalized. PSA is down again on 02/23/21 to 1.80. This stability is excellent. We discussed that as long as the trend is stable, that there is no indication for imaging or intervention otherwise. Because of the pattern of [id number] over the past 3 months I proposed we check PSA again in 6 months. He agreed to this. Performance Status ECOG 0 Plan Follow up in 6 months with PSA Mr. Florez was encouraged to call with questions or concerns in the interim period. Billing Statement Total time of [23] minutes was spent preparing for the visit [1], obtaining HPI [5], examining the patient [1], reviewing diagnostic tests [2], discussing management options [6], coordinating care [2], and writing this note [6]. TRINITY REAL MD Mar 01, 2021 15:24
== END ==
LOC: M ONCR 14:04
PROVIDERS: ATTEND General Practice
DX: C61 Malignant neoplasm of prostate (principal); R91.1 Solitary pulmonary nodule

== ENCOUNTER → 2021-08-31 | Outpatient (CLI) | payer MEDICARE ==
[~2021-08-31] MED LIST changes: +LOSA100T45 PO; -LOSA100T50 PO; +LOSA25TA13 PO; -LOSA25TA14 PO; +LOSA50TA28 PO; -LOSA50TA88 PO
== END ==
LOC: M ONCR 14:21
PROVIDERS: ATTEND General Practice
DX: C61 Malignant neoplasm of prostate (principal); C78.00 Secondary malignant neoplasm of unspecified lung; R97.21 Rising PSA following treatment for malignant neoplasm of prostate; Z79.818 Long term (current) use of other agents affecting estrogen receptors and estrogen levels; Z79.899 Other long term (current) drug therapy; Z87.891 Personal history of nicotine dependence; Z92.21 Personal history of antineoplastic chemotherapy

== ENCOUNTER → 2021-12-20 | Outpatient (CLI) | payer MEDICARE ==
[~2021-12-20] MED LIST changes: +ALEN70TA87 PO; -FOSA70TA PO
== END ==
LOC: M ONCR 13:36
PROVIDERS: ATTEND General Practice
DX: C61 Malignant neoplasm of prostate (principal); R97.20 Elevated prostate specific antigen [PSA]; R91.1 Solitary pulmonary nodule; M25.519 Pain in unspecified shoulder; M54.2 Cervicalgia; Z79.890 Hormone replacement therapy; Z79.899 Other long term (current) drug therapy; Z87.891 Personal history of nicotine dependence

== ENCOUNTER → 2022-06-28 | Outpatient (CLI) | payer MEDICARE | LOC: M ONCR 14:03 | PROVIDERS: ATTEND General Practice | DX: C61 Malignant neoplasm of prostate (principal); R91.1 Solitary pulmonary nodule; Z79.1 Long term (current) use of non-steroidal anti-inflammatories (NSAID); Z79.890 Hormone replacement therapy; Z79.899 Other long term (current) drug therapy; Z87.891 Personal history of nicotine dependence ==

== ENCOUNTER → 2023-06-29 | Outpatient (CLI) | payer MEDICARE ==
[~2023-06-29] MED LIST changes: -COZA50TA PO; +LOSA-528 PO; -LOSA100T45 PO; +LOSA100T46 PO
== END ==
LOC: M ONCR 14:00
PROVIDERS: ATTEND General Practice
DX: C78.01 Secondary malignant neoplasm of right lung (principal); C61 Malignant neoplasm of prostate; R97.21 Rising PSA following treatment for malignant neoplasm of prostate; Z71.2 Person consulting for explanation of examination or test findings; Z79.890 Hormone replacement therapy; Z79.899 Other long term (current) drug therapy; Z87.891 Personal history of nicotine dependence; Z92.29 Personal history of other drug therapy

== ENCOUNTER → 2024-07-01 | Outpatient (CLI) | payer MEDICARE | LOC: M ONCR 13:49 | PROVIDERS: ATTEND General Practice | DX: C61 Malignant neoplasm of prostate (principal); C78.01 Secondary malignant neoplasm of right lung; R97.21 Rising PSA following treatment for malignant neoplasm of prostate; Z92.29 Personal history of other drug therapy; Z87.891 Personal history of nicotine dependence; Z79.890 Hormone replacement therapy; Z79.899 Other long term (current) drug therapy ==

== ENCOUNTER 2024-11-07 15:00 | Outpatient (RCR) | payer MEDICARE | END 2024-11-13 | LOC: M ONCR 15:00 | PROVIDERS: ATTEND General Practice | DX: Z51.0 Encounter for antineoplastic radiation therapy (principal); C78.01 Secondary malignant neoplasm of right lung ==

== ENCOUNTER → 2025-01-28 | Outpatient (CLI) | payer MEDICARE | LOC: M RAD 12:45 | PROVIDERS: ATTEND General Practice | DX: C78.01 Secondary malignant neoplasm of right lung (principal); K80.20 Calculus of gallbladder without cholecystitis without obstruction; N28.1 Cyst of kidney, acquired ==

== ENCOUNTER → 2025-01-30 | Outpatient (CLI) | payer MEDICARE | LOC: M ONCR 13:00 | PROVIDERS: ATTEND General Practice | DX: C78.01 Secondary malignant neoplasm of right lung (principal); C61 Malignant neoplasm of prostate; Z79.818 Long term (current) use of other agents affecting estrogen receptors and estrogen levels; Z79.899 Other long term (current) drug therapy; Z92.3 Personal history of irradiation; Z87.891 Personal history of nicotine dependence | CPT/HCPCS: 36415; 84153; G0463 ==